=== PATIENT | female | born 1960 | race Caucasian/White ===

== ENCOUNTER 2017-11-29 17:18 | Inpatient (IN) ==
--- NOTE | 2017-11-29 18:14 | Emergency Department Note ---
Disposition Clinical Impression: S/P AVR (aortic valve replacement), Elevated INR, At high risk for falls, Compression fracture, Back pain, FRANCISCO (acute kidney injury), Dehydration Disposition: Admitted As Inpatient Condition: Fair Referrals: Josi Booth CNP [Primary Care Provider] - Forms: ED Satisfaction Letter Recheck wound or abnormal lab - General Chief Complaint: ED Recheck/Abnormal Lab/Rx Stated Complaint: INR 8 Time Seen by Provider: 11/29/17 18:13 Source: patient Limitations: no limitations Nursing Notes Reviewed: Yes Vital Signs Reviewed: Yes - History of Present Illness HPI Narrative: Patient presents to the ED for an elevated INR Patient is on Coumadin for a mechanical aortic valve replacement for 5 years ago. She was at the Coumadin clinic today, and reportedly, her level was 8. This was from a fingerstick and not from a full blood draw. She states she has not had any issues with her Coumadin other than when she was first put on it. She also reports she was seen here 4 days ago for back pain. States that she has a history of back pain and did not have any associated trauma and have been hurting for about a week but it did not go away as usual. Reports she was told to go get a massage which she did, but was unable to have a completed because they did an x-ray and found multiple lumbar and thoracic compression fractures. She was subsequently sent to orthopedic spine who placed her in a brace. She is currently awaiting MRI. She states her back pain is about the same, but she is done with her prednisone and it is starting to get worse. No numbness or weakness in her extremities, no loss of bowel or bladder function. She is not been on any recent antibiotics. No fever, chills, chest pain. The pain in her back does make her feel short of breath at times, but only when her back is hurting - Related Data Home Medications Medication Instructions Recorded Confirmed Carvedilol [Carvedilol] 3.125 mg PO BID 11/29/17 11/29/17 FLUoxetine HCl [PROzac] 20 mg PO DAILY 11/29/17 11/29/17 Levothyroxine [Synthroid] 88 mcg PO 0630 11/29/17 11/29/17 Pravastatin Sodium [Pravachol] 40 mg PO HS 11/29/17 11/29/17 Quetiapine Fumarate [Seroquel] 150 mg PO HS 11/29/17 11/29/17 clonazePAM [Klonopin] 1 mg PO BID PRN 11/29/17 11/29/17 lamoTRIgine [Lamictal Xr] 200 mg PO HS 11/29/17 11/29/17 predniSONE [PredniSONE] See Taper PO TAPER 11/29/17 11/29/17 Allergies Allergy/AdvReac Type Severity Reaction Status Date / Time No Known Allergies Allergy Verified 11/29/17 17:20 Review of Systems: As reviewed in the HPI. All other systems reviewed are negative or normal. Past Medical History - Past Medical History Attestation: Yes The following information was validated with the patient. Source: patient Medical history: Reports: CHF, hyperlipidemia, hypertension, seizures, thyroid disease Psychiatric history: Reports: bipolar, depression [employer] history: Reports: bilateral tubal ligation - Social History Smoking Status: Current every day smoker Smokeless Tobacco Status: No Alcohol use: Reports: none Drug use: Reports: none Physical Exam - General Limitations: no limitations General appearance: alert, in no apparent distress - Head Head exam: atraumatic, normocephalic, normal inspection - Eye Eye exam: Present: normal appearance, PERRL, EOMI - Chest Chest inspection: Present: normal inspection, symmetric chest wall rise - Respiratory Respiratory exam: Present: normal lung sounds bilaterally - Cardiovascular Cardiovascular exam: Present: regular rate, normal rhythm, systolic murmur (c/w mechanical aortic valve replacement ) - Abdominal Exam Abdominal exam: Present: soft - Back Exam Back exam: Present: other (did not palpate due to pain and know fracture. Point to lower T, upper L/S as tenderness. ) - Neurological Exam Neurological exam: Present: alert, oriented X3 - Psychiatric Psychiatric exam: Present: other (tearful, overwhelmed ) - Skin Skin exam: Present: warm, dry, intact, normal color Course Course Narrative: patient presents with elevated INR also with new lumbar/thoracic fxs and pain Will recheck labs to confirm. No signs/symptoms of bleeding. According to the 2012 ACCP guidelines, this patient would fall into the 5-9 without bleeding group and does not need Vit K and may just hold doses of Coumadin and have levels rechecked in 48 hours. - Reevaluation(s) Reevaluation #1: Lab called. Her INR is 8.47. Still awaiting renal function. Time: 19:10 Reevaluation #2: Patient's INR is actually 8.5. Patient has also been having fairly significant back pain while she has been here. She reports that she has been unable to get an MRI due to scheduling issues. She is very tearful and concerned. She does live at home and I am concerned that she is a fall risk. We do not want to rapidly reverse her Coumadin due to her having a mechanical aortic valve and would recommend holding it for 48 hours and rechecking. This combined with her relatively new compression fracture. We will admit the patient. The hospitalist service for interventional radiology consult an orthopedic spine consult for possible kyphoplasty. We will also recommend nonemergent inpatient MRI. Vital Signs Temperature 98.1 F 11/29/17 17:20 Pulse Rate 81 11/29/17 17:20 Respiratory Rate 16 11/29/17 17:20 Blood Pressure 145/97 11/29/17 17:20 O2 Sat by Pulse Oximetry 97 11/29/17 17:20 Temperature 98.1 F 11/29/17 17:20 Pulse Rate 81 11/29/17 17:20 Respiratory Rate 16 11/29/17 17:20 Blood Pressure 145/97 11/29/17 17:20 O2 Sat by Pulse Oximetry 97 11/29/17 17:20 Oxygen Delivery Oxygen Delivery Room Air Recheck wound or abnormal lab - Lab Data Result diagrams: 11/29/17 18:13 11/29/17 18:45 Lab Results 11/29/17 11/29/17 11/29/17 Range/Units 18:13 18:45 18:45 WBC 9.0 (4.3-11.1) K/mcL RBC 3.86 (3.82-4.97) M/mcL Hgb 13.5 (11.5-15.4) g/dL Hct 39.2 (35.3-44.9) % MCV 101.6 H (83.0-100.0) fL MCH 35.0 H (28.0-33.3) pg MCHC 34.4 (31.6-35.5) g/dL RDW 13.3 (11.5-14.5) % Plt Count 273 (140-400) K/mcL MPV 9.5 (9.4-12.4) fL Immature Gran % 0.8 (0-4) % Seg Neutrophils % 78.8 % Lymphocytes % 13.2 % Monocytes % 6.9 % Eosinophils % 0.1 % Basophils % 0.2 % Neutrophils # 7.1 (1.6-8.9) K/mcL Lymphocytes # 1.2 (0.6-4.6) K/mcL Monocytes # 0.6 (0.0-1.3) K/mcL Eosinophils # 0.0 (0.0-0.6) K/mcL Basophils # 0.0 (0.0-0.2) K/mcL PT 95.6 H* (9.4-12.1) Seconds INR 8.5 H* Sodium 141 (136-145) mEq/L Potassium 4.2 (3.5-5.1) mEq/L Chloride 109 H (98-107) mEq/L Carbon Dioxide 25 (23-29) mEq/L BUN 23 H (6-20) mg/dL Creatinine 1.22 H (0.60-1.20) mg/dL Est GFR ( Amer) 55 L (> 60) Est GFR (Non-Af Amer) 45 L (> 60) BUN/Creatinine Ratio 19 (6-26) Glucose 115 H (70-105) mg/dL Calculated Osmolality 297 (280-300) Calcium 9.3 (8.6-10.3) mg/dL S.B.A.R. - S.B.A.R. Situation: Demographics, MOA Background: Presenting Complaint, Relevant PMH, Meds, & Allergies Assessment: Vital Signs, Course and respsone to treatment, Exam Concerns, Patient/Family Expectation, Pertinant Lab Results, Outstanding Labs Recommendation: Recommendation based on pending studies, treatments, or consults S.B.A.R. Report Given to: Dr. Cao S.B.A.R. Repor Time: 20:00
[2017-11-29] MEDS ORDERED: *HR* OxyCODONE/APAP 10/325 TABLET PO ONE (18:22)
[2017-11-29 18:56] LABS: Basophils % 0.2 %; Eosinophils % 0.1 %; Hematocrit 39.2 % (35.3-44.9); Hemoglobin 13.5 g/dL (11.5-15.4); Immature Granulocytes % 0.8 % (0-4); Lymphocytes # 1.2 K/mcL (0.6-4.6); Lymphocytes % 13.2 %; Mean Corpuscular HGB Conc 34.4 g/dL (31.6-35.5); Mean Corpuscular Volume 101.6 fL (83.0-100.0); Mean Platelet Volume 9.5 fL (9.4-12.4); Monocytes # 0.6 K/mcL (0.0-1.3); Monocytes % 6.9 %; Neutrophils # 7.1 K/mcL (1.6-8.9); Platelet Count 273 K/mcL (140-400); Red Blood Count 3.86 M/mcL (3.82-4.97); Red Cell Distribution Width 13.3 % (11.5-14.5); Segmented Neutrophils % 78.8 %
[2017-11-29 19:10] LABS: Prothrombin Time 95.6 Seconds (9.4-12.1)
[2017-11-29 19:11] LABS: INR 8.5
[2017-11-29 19:23] LABS: Calcium 9.3 mg/dL (8.6-10.3); Potassium 4.2 mEq/L (3.5-5.1)
[2017-11-29] MEDS ORDERED: 0.9 % Sodium Chloride 1,000 ML IVC ONE (20:00)
[2017-11-29] MEDS ORDERED: *HR* Morphine 2 MG/ML SYRINGE IVP ONE (20:00)
[2017-11-29] MEDS ORDERED: Ondansetron 4 MG/2 ML VIAL IVP ONE (20:00)
--- NOTE | 2017-11-29 20:58 | Emergency Department Note ---
Disposition Clinical Impression: S/P AVR (aortic valve replacement), Elevated INR, At high risk for falls, Compression fracture, Back pain, FRANCISCO (acute kidney injury), Dehydration Disposition: Admitted As Inpatient Condition: Fair General Adult HPI - General Chief complaint: ED Recheck/Abnormal Lab/Rx Stated complaint: INR 8 Time Seen by Provider: 11/29/17 18:13 Source: patient Limitations: no limitations - History of Present Illness Pain Scale: 8 - Related Data Home Medications Medication Instructions Recorded Confirmed Carvedilol [Carvedilol] 3.125 mg PO BID 11/29/17 11/29/17 FLUoxetine HCl [PROzac] 20 mg PO DAILY 11/29/17 11/29/17 Levothyroxine [Synthroid] 88 mcg PO 0630 11/29/17 11/29/17 Pravastatin Sodium [Pravachol] 40 mg PO HS 11/29/17 11/29/17 Quetiapine Fumarate [Seroquel] 150 mg PO HS 11/29/17 11/29/17 Warfarin [Coumadin] 5 mg PO MOWETHFRSA 11/29/17 11/29/17 Warfarin [Coumadin] 7.5 mg PO SUTU 11/29/17 11/29/17 clonazePAM [Klonopin] 1 mg PO BID PRN 11/29/17 11/29/17 lamoTRIgine [Lamictal Xr] 200 mg PO HS 11/29/17 11/29/17 predniSONE [PredniSONE] See Taper PO TAPER 11/29/17 11/29/17 Allergies Allergy/AdvReac Type Severity Reaction Status Date / Time No Known Allergies Allergy Verified 11/29/17 17:20 Past Medical History - Past Medical History Medical history: Reports: CHF, hyperlipidemia, hypertension, seizures, thyroid disease Psychiatric history: Reports: bipolar, depression [employer] history: Reports: bilateral tubal ligation - Social History Smoking Status: Current every day smoker Smokeless Tobacco Status: No Alcohol use: Reports: none Drug use: Reports: none Physical Exam - General Limitations: no limitations General appearance: alert, in no apparent distress Course Vital Signs Temperature 98.1 F 11/29/17 17:20 Pulse Rate 81 11/29/17 17:20 Respiratory Rate 16 11/29/17 17:20 Blood Pressure 145/97 11/29/17 17:20 O2 Sat by Pulse Oximetry 97 11/29/17 17:20 Temperature 98.1 F 11/29/17 17:20 Pulse Rate 68 11/29/17 20:08 Respiratory Rate 20 11/29/17 20:08 Blood Pressure 148/110 11/29/17 20:08 O2 Sat by Pulse Oximetry 98 11/29/17 20:08 Oxygen Delivery Oxygen Delivery Room Air Medical Decision Making - Lab Data Result diagrams: 11/29/17 18:13 11/29/17 18:45 Lab Results 11/29/17 11/29/17 11/29/17 Range/Units 18:13 18:45 18:45 WBC 9.0 (4.3-11.1) K/mcL RBC 3.86 (3.82-4.97) M/mcL Hgb 13.5 (11.5-15.4) g/dL Hct 39.2 (35.3-44.9) % MCV 101.6 H (83.0-100.0) fL MCH 35.0 H (28.0-33.3) pg MCHC 34.4 (31.6-35.5) g/dL RDW 13.3 (11.5-14.5) % Plt Count 273 (140-400) K/mcL MPV 9.5 (9.4-12.4) fL Immature Gran % 0.8 (0-4) % Seg Neutrophils % 78.8 % Lymphocytes % 13.2 % Monocytes % 6.9 % Eosinophils % 0.1 % Basophils % 0.2 % Neutrophils # 7.1 (1.6-8.9) K/mcL Lymphocytes # 1.2 (0.6-4.6) K/mcL Monocytes # 0.6 (0.0-1.3) K/mcL Eosinophils # 0.0 (0.0-0.6) K/mcL Basophils # 0.0 (0.0-0.2) K/mcL PT 95.6 H* (9.4-12.1) Seconds INR 8.5 H* Sodium 141 (136-145) mEq/L Potassium 4.2 (3.5-5.1) mEq/L Chloride 109 H (98-107) mEq/L Carbon Dioxide 25 (23-29) mEq/L BUN 23 H (6-20) mg/dL Creatinine 1.22 H (0.60-1.20) mg/dL Est GFR ( Amer) 55 L (> 60) Est GFR (Non-Af Amer) 45 L (> 60) BUN/Creatinine Ratio 19 (6-26) Glucose 115 H (70-105) mg/dL Calculated Osmolality 297 (280-300) Calcium 9.3 (8.6-10.3) mg/dL Attestation Statement - Attestation Attestation: I examined this patient and my medical decision-making was reviewed with the Resident Physician, Dr. Spencer. I agree with the documented findings, disposition and treatment plan as described except to the extent set forth below. Patient is 57-year-old female sent here from the anticoagulation clinic for an elevated INR. Patient is currently on Coumadin and has been for the past 5 years for a mechanical aortic valve replacement. She was sent for an elevated INR of 8. Patient was evaluated in the ER a week ago for back pain discharged home without imaging or intervention in due to ongoing pain was seen by her doctor had outpatient imaging performed showing numerous compression fractures of thoracic and lumbar spine. Patient was referred to the spine surgeons who placed her in a brace and she is awaiting MRI at this time. Due to the ongoing pain despite patient being on steroids at this time she has been having increasing intractable back pain that has caused her to have decreased appetite and by mouth intake at home. Patient has not had any rectal bleeding no bleeding gums with brushing her teeth no easy bruising. I agree with patient's physical exam findings as documented. Vital signs are stable. Patient is uncomfortable but in no acute distress. Patient had lab evaluation showing some mild AK I likely due to decreased by mouth intake and was provided pain control here in the emergency department. Repeat INR shows mild elevation at 8.5. Feel the patient would benefit from hospitalization as she is a fall risk currently in her brace with decreased by mouth intake and now dehydration. Started IV fluids in the ED and patient would benefit from inpatient admission hydration, pain control, and MRI while in the hospital. Patient agrees with this plan and case was discussed with the hospitalist.
[2017-11-29] MEDS ORDERED: *HR* Phytonadione 10 MG/ML AMPUL SQ ONE (23:56)
[2017-11-30] MEDS ORDERED: *HR* HYDROcodone/Acet 5/325 mg TABLET PO PRN (00:46)
[2017-11-30] MEDS ORDERED: Naloxone 0.4 MG/ML INJ IVP PRN (00:46)
[2017-11-30] MEDS ORDERED: Acetaminophen 325 MG TABLET PO PRN (00:46)
[2017-11-30] MEDS: lamoTRIgine 100 MG TABLET PO SCH ×2 (01:21→20:20)
[2017-11-30] MEDS: *HR* OxyCODONE Immed Rel 5 MG TABLET PO PRN ×2 (01:21→07:58)
--- NOTE | 2017-11-30 01:41 | Internal Med History&Physical ---
<Esthela Worrell H - Last Filed: 11/30/17 01:20> Date of Encounter: 11/30/17 Time of Encounter: 01:20 Internal Medicine - H&P: HPI Chief complaint: back pain/ INR 8.5 Admitted From: Emergency Dept Plans for Post Hospital Care: Home History of present illness: Ms. Woods is a 57 year old female with past medical history of temporal lobe epilepsy, aortic and mitral valve mechanical replacement on chronic anticoagulation with Coumadin, and COPD who presented to [facility] on 11/29/2017 with complaints of back pain and lab work earlier in the day resulting in an INR of 8.5. Patient states she was helping somebody move approximately 2 weeks ago and reports low back pain ever since then. She came to the ED approximately a week ago and was told to get a massage. Massage therapist told her she needs to see her physician. Her physician ordered some lower back x-rays which indicated compression fractures in her thoracic and lumbar spine. She saw Dr. Fitzpatrick as an outpatient and he put her in a brace and ordered an MRI of which the patient has not had due to scheduling complex. Patient went to Coumadin clinic today and her INR was found to be 8.5. The decision was made to admit her to the hospital as patient is in a back brace with an extremely elevated INR and therefore at fall risk. Patient reports aortic valve and mitral valve replacement approximate 5 years ago. She has been on Coumadin since that time. She denies any other complaints other than the sharp back pain with no radiation. She denies any bowel or bladder incontinence. She denies any headaches, dizziness, headaches, or focal weakness or strength deficits. She denies any nausea, vomiting, diarrhea, hematemesis, melena, or hematochezia. Pain, palpitations, shortness of breath, nausea, or diaphoresis. Past Med Surg Social Fam HX - Past Medical History Attestation: Yes The following information was validated with the patient. Source: patient, old records reviewed Medical history: CHF, hyperlipidemia, hypertension, seizures, thyroid disease, valvular heart disease (S/P mitral and aortic valve replacement) Psychiatric history: bipolar, depression - Past Surgical History Surgical History: heart valve replacement - Social History Smoking Status: Current every day smoker Packs per day: <pk per day Smokeless Tobacco Status: No Alcohol use: none Drug use: none - Family History Father Living Status: Age at : 53 Cause of : mi Hx Family Cardiac Disorders: Yes Hx Family Respiratory Disorders: No Hx Family Cancer: No Hx Family GI Disorders: No Hx Family Genitourinary Disorders: No Hx Family Endocrine Disorder: No Hx Family Musculoskeletal Disorders: No Hx Family Neuromuscular Disorders: No Hx Family Neurologic Disorders: No Hx Family HEENT Disorders: No Hx Family Autoimmune Disorders: No Hx Family Reproductive Disorders: No Hx Family Psychosocial Disorders: No Hx Family Medical Disorders: No Mother Living Status: Age at : 83 Internal Medicine - H&P: Meds Carvedilol [Carvedilol] 3.125 mg PO BID 11/29/17 [History] FLUoxetine HCl [PROzac] 20 mg PO DAILY 11/29/17 [History] Levothyroxine [Synthroid] 88 mcg PO 0630 11/29/17 [History] Pravastatin Sodium [Pravachol] 40 mg PO HS 11/29/17 [History] Quetiapine Fumarate [Seroquel] 150 mg PO HS 11/29/17 [History] Warfarin [Coumadin] 5 mg PO MOWETHFRSA 11/29/17 [History] Warfarin [Coumadin] 7.5 mg PO SUTU 11/29/17 [History] clonazePAM [Klonopin] 1 mg PO BID PRN 11/29/17 [History] lamoTRIgine [Lamictal Xr] 200 mg PO HS 11/29/17 [History] predniSONE [PredniSONE] See Taper PO TAPER 11/29/17 [History] 3 Allergy/AdvReac Type Severity Reaction Status Date / Time No Known Allergies Allergy Verified 11/29/17 17:20 All Systems PM: A 10-system review of systems was performed and is negative for pertinent findings except as documented above in the HPI. - Constitutional Constitutional: no chills, no fever(s), no falls, no lethargy, no weakness - EENT Eyes: no decreased night vision, no other visual disturbances Nose, mouth and throat: no nasal congestion, no nasal discharge - Cardiovascular Cardiovascular ROS IM: no chest pain, no claudication, no diaphoresis, no dyspnea, no dyspnea on exertion, no edema, no irregular heart rhythm, no lightheadedness, no orthopnea, no palpitations, no paroxysmal nocturnal dyspnea - Respiratory Respiratory: no cough, no dyspnea - Gastrointestinal Gastrointestinal: no abdominal pain, no diarrhea, no hematemesis, no hematochezia, no loose stools, no melena, no nausea - Musculoskeletal Musculoskeletal ROS IM: back pain, no deformity, no numbness, no stiffness, no tingling - Integumentary Integumentary IM: no erythema, no rash, no jaundice - Neurological Neurological ROS: no abnormal gait, no burning sensations, no focal weakness, no numbness, no paresthesias, no radicular pain, no restless legs, no weakness, no other visual disturbances - Psychiatric Psychiatric: anxiety, depression - Endocrine Endocrine IM: no cold intolerance, no heat intolerance - Hematologic/Lymphatic Hematologic/Lymphatic: no easy bleeding, no easy bruising, no lymphadenopathy - Constitutional Vitals: Temp Pulse Resp BP Pulse Ox 97.7 F 64 16 160/96 98 11/29/17 22:06 11/29/17 22:06 11/29/17 22:06 11/29/17 22:06 11/29/17 22:06 General appearance: Present: cooperative, A&O X 3, pleasant, no acute distress, answers questions appropriately - Head Head exam: Present: atraumatic, normocephalic - Eye Eye exam: Present: conjuntiva pink, sclera anicteric - Neck Neck exam general surgery: Present: supple, trachea midline. Absent: lymphadenopathy - Respiratory Respiratory exam: Present: CTAB, rhonchi, wheezes. Absent: accessory muscle use , rales - Cardiovascular Cardiovascular exam: Present: RRR, +S1, +S2. Absent: diastolic murmur, gallop, rubs, systolic murmur - GI/Abdominal GI/Abdominal exam: Present: normal bowel sounds, soft, no peritoneal signs. Absent: distended, firm, guarding, tenderness - Extremities Exam Extremities exam: Present: warm, radial pulses palpable and symmetrical. Absent : calf tenderness, cyanotic, pedal edema - Back Exam Back exam: Present: vertebral tenderness (mild midline tenderness palpated in lumbar spine. No step offs.). Absent: CVA tenderness (L), CVA tenderness (R) - Neurological Exam Neurological exam: Present: CN II-XII intact, oriented X3, no focal deficits, strengths equal and symetr throughout. Absent: pronater drift, facial droop, speech deficit - Psychiatric Psychiatric exam: Present: normal affect, normal mood - Skin Skin exam: Present: dry, intact Internal Med - H&P Results - Labs CBC & Chem 7: 11/29/17 18:13 11/29/17 18:45 - Assessment and plan (1) Compression fracture Current Visit: Yes Status: Acute Assessment and plan: 57-year-old female status post mechanical valve replacement on chronic anticoagulation with Coumadin presents with two-week history of midline lumbar back pain. X-rays obtained as an outpatient indicate compression fractures in the thoracic and lumbar vertebrae. -We will obtain MRI thoracic and lumbar spine. -Consult to Dr. Mascorro with orthopedic spine. -Fall precautions as patient's INR is elevated to 8.5. (2) Elevated INR Current Visit: Yes Status: Acute Assessment and plan: Due to patient having 2 mechanical valves and no active signs of bleeding, we will abstain from FFP transfusion. -We will hold Coumadin for now. -Monitor daily. (3) FRANCISCO (acute kidney injury) Current Visit: Yes Status: Acute Assessment and plan: Patient received a bolus in the ED. -Recheck renal function in the morning. -Continue IV hydration. (4) At high risk for falls Current Visit: Yes Status: Acute Assessment and plan: Fall precautions while in back brace. (5) S/P AVR (aortic valve replacement) Current Visit: Yes Status: Acute Assessment and plan: Recommend an INR between 3 and 4. We will hold off on reversal of INR due to mechanical aortic and mitral valves. -coumadin held - Time Spent With Patient Total time spent is greater than 50% in coordination of care (as documented) at patient's floor/unit and/or counseling patient: <Lula Birchkimberlyjuan c - Last Filed: 11/30/17 06:31> Date of Encounter: 11/30/17 Internal Medicine - H&P: HPI History of present illness: Ms. Woods is a 57 year old female All Systems PM: A 10-system review of systems was performed and is negative for pertinent findings except as documented above in the HPI. - Constitutional Vitals: Temp Pulse Resp BP Pulse Ox 97.6 F 66 16 136/88 92 11/30/17 03:48 11/30/17 03:48 11/30/17 03:48 11/30/17 03:48 11/30/17 03:48 Internal Med - H&P Results - Labs CBC & Chem 7: 11/30/17 05:37 11/30/17 05:37 Labs: Short CBC 11/30/17 Range/Units 05:37 WBC 8.1 (4.3-11.1) K/mcL Hgb 13.6 (11.5-15.4) g/dL Hct 41.3 (35.3-44.9) % Plt Count 246 (140-400) K/mcL Neutrophils # 5.5 (1.6-8.9) K/mcL BMP 11/30/17 05:37 Sodium 142 Potassium 4.1 Chloride 110 H Carbon Dioxide 28 BUN 15 Creatinine 0.78 Glucose 82 Calcium 9.2 Liver Function 11/30/17 Range/Units 05:37 Total Bilirubin 0.4 (0.3-1.0) mg/dL AST 18 (13-39) Units/L ALT 13 (7-52) Units/L Alkaline Phosphatase 89 (34-104) Units/L Albumin 3.8 (3.5-5.7) g/dL - Attending Attestation I examined this patient and my medical decision-making was reviewed with the Resident Physician. I agree with the documented findings, disposition and treatment plan as described except to the extent set forth below. - Time Spent With Patient Total time spent is greater than 50% in coordination of care (as documented) at patient's floor/unit and/or counseling patient:
[2017-11-30 06:04] LABS: Basophils # 0.1 K/mcL (0.0-0.2); Basophils % 0.6 %; Eosinophils # 0.1 K/mcL (0.0-0.6); Eosinophils % 1.7 %; Hematocrit 41.3 % (35.3-44.9); Hemoglobin 13.6 g/dL (11.5-15.4); Lymphocytes # 1.9 K/mcL (0.6-4.6); Lymphocytes % 22.9 %; Mean Corpuscular HGB Conc 32.9 g/dL (31.6-35.5); Mean Corpuscular Hemoglobin 34.3 pg (28.0-33.3); Mean Platelet Volume 9.4 fL (9.4-12.4); Monocytes # 0.6 K/mcL (0.0-1.3); Monocytes % 6.8 %; Neutrophils # 5.5 K/mcL (1.6-8.9); Platelet Count 246 K/mcL (140-400); Red Blood Count 3.97 M/mcL (3.82-4.97); Red Cell Distribution Width 13.4 % (11.5-14.5)
[2017-11-30 06:20] LABS: Alanine Aminotransferase 13 Units/L (7-52); Albumin 3.8 g/dL (3.5-5.7); Albumin/Globulin Ratio 1.5 (1.1-2.2); Alkaline Phosphatase 89 Units/L (34-104); Aspartate Amino Transferase 18 Units/L (13-39); BUN/Creatinine Ratio 19 (6-26); Bilirubin,Total 0.4 mg/dL (0.3-1.0); Blood Urea Nitrogen 15 mg/dL (6-20); Calcium 9.2 mg/dL (8.6-10.3); Carbon Dioxide 28 mEq/L (23-29); Chloride 110 mEq/L (98-107); Globulin 2.5 g/dL (2.4-3.5); Glucose 82 mg/dL (70-105); Magnesium 2.2 mg/dL (1.6-2.6); Osmolality,Calculated 294 (280-300); Phosphorous 2.9 mg/dL (2.7-4.5); Potassium 4.1 mEq/L (3.5-5.1); Sodium 142 mEq/L (136-145); Total Protein 6.3 g/dL (6.4-8.9); eGFR For African Americans > 60 (> 60); eGFR For Non-African Americans > 60 (> 60)
[2017-11-30 06:33] LABS: Activated Partial Thrombo Time 49.5 Seconds (26.0-36.0)
[2017-11-30 06:44] LABS: Prothrombin Time 75.8 Seconds (9.4-12.1)
[2017-11-30 06:45] LABS: INR 6.8
[2017-11-30] MEDS: FLUoxetine 20 MG CAPSULE PO SCH (07:58)
[2017-11-30] MEDS ORDERED: Ondansetron 4 MG/2 ML VIAL IVP PRN (09:33)
[2017-11-30] MEDS ORDERED: Ondansetron 4 MG/2 ML VIAL ONE (09:36)
[2017-11-30] MEDS ORDERED: *HR* Promethazine 25 MG/ML VIAL IVP PRN (14:40)
[2017-11-30] MEDS ORDERED: *HR* FentaNYL PATCH 50 MCG PATCH TD SCH (14:45)
--- NOTE | 2017-11-30 14:47 | Internal Med Progress Note ---
Date of Encounter: 11/30/17 Time of Encounter: 10:00 - Assessment and plan (1) S/P AVR (aortic valve replacement) Current Visit: Yes Status: Acute Assessment and plan: Pt with aortic and mitral valve replaced. Pt was taking Warfarin. INR 8.5 on arrival. Warfarin held, today INR is 6.8. Continue to hold Warfarin and monitor INR and for signs of bleeding. (2) Elevated INR Current Visit: Yes Status: Acute Assessment and plan: Plan as above. (3) At high risk for falls Current Visit: Yes Status: Acute Assessment and plan: Secondary to back pain/weakness. Fall precautions while in back brace. (4) Compression fracture Current Visit: Yes Status: Acute Assessment and plan: Chronic T6 and L1 compression fractures. MRI today shows bulging dises in lumbar area, T12 abnormal signal, possible acute fracture or underlying lesion could not be excluded, possible bilateral sacral insufficiency fractures, and multilevel degenerative changes of the T and L spine, no significant spinal canal stenosis. Pain medication changed to Fentanyl patch 50mcg TID Maintain brace Will examine other methods of pain control if she is still not getting relief. Pt will be seen by Dr. Mascorro Lumbar Spine MRI 11/30/17 00:52 IMPRESSION: Abnormal STIR signal involving the T12 vertebral body, which extends into the bilateral posterior elements, right greater than left. There is a fluid signal within the superior endplate of T12 vertebral body. Findings may represent acute fracture if there is recent history of trauma. Underlying lesion cannot be excluded on noncontrast examination. Consider follow-up examination, if there is a concern for pathologic fracture. Consider further evaluation with a CT to better define the fracture line. Chronic T6 and L1 compression fractures, as detailed above. Abnormal STIR signal involving the superior endplate of C7 vertebral body may represent degenerative changes, or minimal superior endplate fracture. Correlate with any symptoms in cervical spine lesion. This is partially imaged on thoracic spine MRI. Abnormal T2 signal within the bilateral sacrum. Possibility of bilateral sacral insufficiency fractures should be considered given degree of osteopenia on the radiographic examination. Multilevel degenerative changes of the thoracic and lumbar spine, as detailed above. No significant spinal canal stenosis. D/ / 11/30/2017 12:35:01 Tyson Cesar MD / yana Interpreting Provider: Tyson Cesar MD Thoracic Spine MRI 11/30/17 00:52 IMPRESSION: Abnormal STIR signal involving the T12 vertebral body, which extends into the bilateral posterior elements, right greater than left. There is a fluid signal within the superior endplate of T12 vertebral body. Findings may represent acute fracture if there is recent history of trauma. Underlying lesion cannot be excluded on noncontrast examination. Consider follow-up examination, if there is a concern for pathologic fracture. Consider further evaluation with a CT to better define the fracture line. Chronic T6 and L1 compression fractures, as detailed above. Abnormal STIR signal involving the superior endplate of C7 vertebral body may represent degenerative changes, or minimal superior endplate fracture. Correlate with any symptoms in cervical spine lesion. This is partially imaged on thoracic spine MRI. Abnormal T2 signal within the bilateral sacrum. Possibility of bilateral sacral insufficiency fractures should be considered given degree of osteopenia on the radiographic examination. Multilevel degenerative changes of the thoracic and lumbar spine, as detailed above. No significant spinal canal stenosis. D/ / 11/30/2017 12:35:01 Tyson Cesar MD / yana Interpreting Provider: Tyson Cesar MD (5) FRANCISCO (acute kidney injury) Current Visit: Yes Status: Resolved Assessment and plan: Relieved with IVF bolus in the ED. Continue to avoid nephrotoxins and monitor labs. - Time Spent With Patient Total time spent is greater than 50% in coordination of care (as documented) at patient's floor/unit and/or counseling patient: less than 15 minutes - Subjective Interval history: Pt was seen and assessed at bedside at 1000. She was having nausea and intractable back pain. She was getting little relief from pain medications. Due to pain and nausea, she was difficult to assess. Pt is aware that pain medication and antiemetic will be changed. - Constitutional Vitals: Temp Pulse Resp BP Pulse Ox 97.5 F L 78 18 132/79 93 11/30/17 10:45 11/30/17 10:45 11/30/17 10:45 11/30/17 10:45 11/30/17 10:45 General appearance: Present: cooperative, A&O X 3, pleasant, no acute distress, answers questions appropriately - Head Head exam: Present: atraumatic, normal inspection, normocephalic - Eye Eye exam: Present: normal appearance, conjuntiva pink, sclera anicteric - Neck Neck exam general surgery: Present: normal inspection, supple, trachea midline. Absent: lymphadenopathy, tenderness - Respiratory Respiratory exam: Present: CTAB. Absent: accessory muscle use, decreased breath sounds, rales, respiratory distress, rhonchi, wheezes - Cardiovascular Cardiovascular exam: Present: RRR, +S1, +S2. Absent: diastolic murmur, gallop, rubs, systolic murmur - GI/Abdominal GI/Abdominal exam: Present: normal bowel sounds, soft. Absent: distended, hepatomegaly, tenderness - Extremities Exam Extremities exam: Present: normal capillary refill, normal inspection, warm, radial pulses palpable and symmetrical. Absent: calf tenderness, cyanotic, pedal edema, tenderness - Neurological Exam Neurological exam: Present: alert, oriented X3, no focal deficits. Absent: facial droop, speech deficit - Skin Skin exam: Present: dry, intact, normal color, warm. Absent: rash Internal Medicine: Result - Labs CBC & Chem 7: 11/30/17 05:37 11/30/17 05:37 Labs: Short CBC 11/30/17 Range/Units 05:37 WBC 8.1 (4.3-11.1) K/mcL Hgb 13.6 (11.5-15.4) g/dL Hct 41.3 (35.3-44.9) % Plt Count 246 (140-400) K/mcL Neutrophils # 5.5 (1.6-8.9) K/mcL BMP 11/30/17 05:37 Sodium 142 Potassium 4.1 Chloride 110 H Carbon Dioxide 28 BUN 15 Creatinine 0.78 Glucose 82 Calcium 9.2 Liver Function 11/30/17 Range/Units 05:37 Total Bilirubin 0.4 (0.3-1.0) mg/dL AST 18 (13-39) Units/L ALT 13 (7-52) Units/L Alkaline Phosphatase 89 (34-104) Units/L Albumin 3.8 (3.5-5.7) g/dL - ABG Interpretation ABG results: PT/INR, D-dimer PT 75.8 Seconds (9.4-12.1) H* 11/30/17 05:37 - Impressions Impressions Lumbar Spine MRI 11/30/17 00:52 IMPRESSION: Abnormal STIR signal involving the T12 vertebral body, which extends into the bilateral posterior elements, right greater than left. There is a fluid signal within the superior endplate of T12 vertebral body. Findings may represent acute fracture if there is recent history of trauma. Underlying lesion cannot be excluded on noncontrast examination. Consider follow-up examination, if there is a concern for pathologic fracture. Consider further evaluation with a CT to better define the fracture line. Chronic T6 and L1 compression fractures, as detailed above. Abnormal STIR signal involving the superior endplate of C7 vertebral body may represent degenerative changes, or minimal superior endplate fracture. Correlate with any symptoms in cervical spine lesion. This is partially imaged on thoracic spine MRI. Abnormal T2 signal within the bilateral sacrum. Possibility of bilateral sacral insufficiency fractures should be considered given degree of osteopenia on the radiographic examination. Multilevel degenerative changes of the thoracic and lumbar spine, as detailed above. No significant spinal canal stenosis. D/ : / 11/30/2017 12:35:01 Tyson Cesar MD / yana Interpreting Provider: Tyson Cesar MD Thoracic Spine MRI 11/30/17 00:52 IMPRESSION: Abnormal STIR signal involving the T12 vertebral body, which extends into the bilateral posterior elements, right greater than left. There is a fluid signal within the superior endplate of T12 vertebral body. Findings may represent acute fracture if there is recent history of trauma. Underlying lesion cannot be excluded on noncontrast examination. Consider follow-up examination, if there is a concern for pathologic fracture. Consider further evaluation with a CT to better define the fracture line. Chronic T6 and L1 compression fractures, as detailed above. Abnormal STIR signal involving the superior endplate of C7 vertebral body may represent degenerative changes, or minimal superior endplate fracture. Correlate with any symptoms in cervical spine lesion. This is partially imaged on thoracic spine MRI. Abnormal T2 signal within the bilateral sacrum. Possibility of bilateral sacral insufficiency fractures should be considered given degree of osteopenia on the radiographic examination. Multilevel degenerative changes of the thoracic and lumbar spine, as detailed above. No significant spinal canal stenosis. D/ : / 11/30/2017 12:35:01 Tyson Cesar MD / yana Interpreting Provider: Tyson Cesar MD Consult Discharge Plan - Plan Referrals: Josi Booth CNP [Primary Care Provider] -
[2017-11-30] MEDS ORDERED: *HR* FentaNYL PATCH 25 MCG PATCH TD SCH (15:30)
[2017-11-30] MEDS: clonazePAM 1 MG TABLET PO PRN (20:25)
[2017-12-01 05:52] LABS: Basophils # 0.1 K/mcL (0.0-0.2); Basophils % 0.8 %; Eosinophils # 0.3 K/mcL (0.0-0.6); Eosinophils % 2.9 %; Hemoglobin 13.5 g/dL (11.5-15.4); Immature Granulocytes % 1.4 % (0-4); Lymphocytes # 2.3 K/mcL (0.6-4.6); Lymphocytes % 26.1 %; Mean Corpuscular HGB Conc 32.9 g/dL (31.6-35.5); Mean Corpuscular Hemoglobin 33.8 pg (28.0-33.3); Mean Corpuscular Volume 102.8 fL (83.0-100.0); Mean Platelet Volume 9.7 fL (9.4-12.4); Monocytes # 0.6 K/mcL (0.0-1.3); Monocytes % 7.2 %; Neutrophils # 5.4 K/mcL (1.6-8.9); Platelet Count 235 K/mcL (140-400); Red Blood Count 3.99 M/mcL (3.82-4.97); Red Cell Distribution Width 13.2 % (11.5-14.5); Segmented Neutrophils % 61.6 %
[2017-12-01 06:08] LABS: BUN/Creatinine Ratio 21 (6-26); Blood Urea Nitrogen 17 mg/dL (6-20); Calcium 9.3 mg/dL (8.6-10.3); Carbon Dioxide 31 mEq/L (23-29); Chloride 106 mEq/L (98-107); Glucose 78 mg/dL (70-105); Osmolality,Calculated 290 (280-300); Potassium 4.4 mEq/L (3.5-5.1); Sodium 140 mEq/L (136-145); eGFR For African Americans > 60 (> 60); eGFR For Non-African Americans > 60 (> 60)
[2017-12-01] MEDS: FLUoxetine 20 MG CAPSULE PO SCH (08:00)
[2017-12-01 09:46] LABS: INR 1.3; Prothrombin Time 13.9 Seconds (9.4-12.1)
--- NOTE | 2017-12-01 15:01 | Internal Med Progress Note ---
Date of Encounter: 12/01/17 Time of Encounter: 09:45 - Assessment and plan (1) S/P AVR (aortic valve replacement) Current Visit: Yes Status: Acute Assessment and plan: Pt with aortic and mitral valve replaced. INR 1.3. Restarted with pharmacy to dose. Continue to monitor INR. (2) Elevated INR Current Visit: Yes Status: Acute Assessment and plan: Resolved. Warfarin restarted, pharmacy to dose. Monitor INR. (3) At high risk for falls Current Visit: Yes Status: Acute Assessment and plan: Monitor for safety. Pt reports several falls over the last 6 months. (4) Compression fracture Current Visit: Yes Status: Acute Assessment and plan: Chronic T6 and L1 compression fractures. MRI shows bulging dises in lumbar area, T12 abnormal signal, possible acute fracture or underlying lesion could not be excluded, possible bilateral sacral insufficiency fractures, and multilevel degenerative changes of the T and L spine, no significant spinal canal stenosis. Pain medication changed to Fentanyl patch 50mcg TID, pain well controlled now. Maintain brace Pt will be seen by Dr. Mascorro Lumbar Spine MRI 11/30/17 00:52 IMPRESSION: Abnormal STIR signal involving the T12 vertebral body, which extends into the bilateral posterior elements, right greater than left. There is a fluid signal within the superior endplate of T12 vertebral body. Findings may represent acute fracture if there is recent history of trauma. Underlying lesion cannot be excluded on noncontrast examination. Consider follow-up examination, if there is a concern for pathologic fracture. Consider further evaluation with a CT to better define the fracture line. Chronic T6 and L1 compression fractures, as detailed above. Abnormal STIR signal involving the superior endplate of C7 vertebral body may represent degenerative changes, or minimal superior endplate fracture. Correlate with any symptoms in cervical spine lesion. This is partially imaged on thoracic spine MRI. Abnormal T2 signal within the bilateral sacrum. Possibility of bilateral sacral insufficiency fractures should be considered given degree of osteopenia on the radiographic examination. Multilevel degenerative changes of the thoracic and lumbar spine, as detailed above. No significant spinal canal stenosis. D/ / 11/30/2017 12:35:01 Tyson Cesar MD / yana Interpreting Provider: Tyson Cesar MD Thoracic Spine MRI 11/30/17 00:52 IMPRESSION: Abnormal STIR signal involving the T12 vertebral body, which extends into the bilateral posterior elements, right greater than left. There is a fluid signal within the superior endplate of T12 vertebral body. Findings may represent acute fracture if there is recent history of trauma. Underlying lesion cannot be excluded on noncontrast examination. Consider follow-up examination, if there is a concern for pathologic fracture. Consider further evaluation with a CT to better define the fracture line. Chronic T6 and L1 compression fractures, as detailed above. Abnormal STIR signal involving the superior endplate of C7 vertebral body may represent degenerative changes, or minimal superior endplate fracture. Correlate with any symptoms in cervical spine lesion. This is partially imaged on thoracic spine MRI. Abnormal T2 signal within the bilateral sacrum. Possibility of bilateral sacral insufficiency fractures should be considered given degree of osteopenia on the radiographic examination. Multilevel degenerative changes of the thoracic and lumbar spine, as detailed above. No significant spinal canal stenosis. D/ / 11/30/2017 12:35:01 Tyson Cesar MD / yana Interpreting Provider: Tyson Cesar MD (5) FRANCISCO (acute kidney injury) Current Visit: Yes Status: Resolved Assessment and plan: Resolved. Relieved with IVF bolus in the ED. Continue to avoid nephrotoxins and monitor labs. (6) DVT prophylaxis Current Visit: Yes Status: Acute Assessment and plan: Pt restarting Warfarin, pharmacy to dose. Calf pumps also ordered. Pt on bedrest. - Time Spent With Patient Total time spent is greater than 50% in coordination of care (as documented) at patient's floor/unit and/or counseling patient: less than 15 minutes - Subjective Interval history: Pt was seen and assessed at bedside at 0945. Pt reports that pain is under control and that she feels better. She states that she would like to go home and see Dr Mascorro in the office, we discussed that her appointment may be a few days away and that she is probably better off here and that we can control her pain better. She was in agreement. She denies n/v abdominal pain, headache, blurred vision, chest pain, or shortness of breath. - Constitutional Vitals: Temp Pulse Resp BP Pulse Ox 98.2 F 66 16 106/71 95 12/01/17 11:57 12/01/17 11:57 12/01/17 11:57 12/01/17 11:57 12/01/17 11:57 General appearance: Present: cooperative, A&O X 3, pleasant, no acute distress, answers questions appropriately - Head Head exam: Present: atraumatic, normal inspection, normocephalic - Eye Eye exam: Present: normal appearance, conjuntiva pink, sclera anicteric - Neck Neck exam general surgery: Present: supple, trachea midline. Absent: lymphadenopathy - Respiratory Respiratory exam: Present: CTAB. Absent: accessory muscle use, rales, respiratory distress, rhonchi, wheezes - Cardiovascular Cardiovascular exam: Present: RRR, +S1, +S2. Absent: diastolic murmur, gallop, rubs, systolic murmur - GI/Abdominal GI/Abdominal exam: Present: normal bowel sounds, soft. Absent: distended, tenderness - Extremities Exam Extremities exam: Present: normal capillary refill, normal inspection, warm, radial pulses palpable and symmetrical. Absent: calf tenderness, cyanotic, pedal edema, tenderness - Neurological Exam Neurological exam: Present: alert, oriented X3, no focal deficits. Absent: facial droop, speech deficit - Skin Skin exam: Present: dry, intact, normal color, warm. Absent: rash Internal Medicine: Result - Labs CBC & Chem 7: 12/01/17 04:56 12/01/17 04:56 Labs: Short CBC 12/01/17 Range/Units 04:56 WBC 8.7 (4.3-11.1) K/mcL Hgb 13.5 (11.5-15.4) g/dL Hct 41.0 (35.3-44.9) % Plt Count 235 (140-400) K/mcL Neutrophils # 5.4 (1.6-8.9) K/mcL BMP 12/01/17 04:56 Sodium 140 Potassium 4.4 Chloride 106 Carbon Dioxide 31 H BUN 17 Creatinine 0.81 Glucose 78 Calcium 9.3 - ABG Interpretation ABG results: PT/INR, D-dimer PT 13.9 Seconds (9.4-12.1) H D 12/01/17 08:24 - Impressions Impressions Lumbar Spine MRI 11/30/17 00:52 IMPRESSION: 1. Abnormal STIR signal involving T12 vertebral body, which extends into bilateral posterior elements, right greater than left. There is fluid signal within superior endplate of T12 vertebral body. Findings may represent acute fracture if there is recent history of trauma. Underlying lesion cannot be excluded on noncontrast examination. Consider follow-up examination, if there is a concern for pathologic fracture. Consider further evaluation with CT to better define the fracture line. 2. Abnormal T2 signal within the bilateral sacrum. Possibility of bilateral sacral insufficiency fractures should be considered given degree of osteopenia on the radiographic examination. 3. Abnormal STIR signal involving superior endplate of C7 vertebral body may represent degenerative changes, or minimal superior endplate fracture. Correlate with any symptoms in cervical spine lesion. This is partially imaged on thoracic spine MRI. 4. Chronic T6 and L1 compression fractures, as detailed above. 5. Multilevel degenerative changes of the thoracic and lumbar spine, as detailed above. No significant spinal canal stenosis. D/ : / 11/30/2017 12:35:01 Tyson Cesar MD / yana Interpreting Provider: Tyson Cesar MD Thoracic Spine MRI 11/30/17 00:52 IMPRESSION: 1. Abnormal STIR signal involving T12 vertebral body, which extends into bilateral posterior elements, right greater than left. There is fluid signal within superior endplate of T12 vertebral body. Findings may represent acute fracture if there is recent history of trauma. Underlying lesion cannot be excluded on noncontrast examination. Consider follow-up examination, if there is a concern for pathologic fracture. Consider further evaluation with CT to better define the fracture line. 2. Abnormal T2 signal within the bilateral sacrum. Possibility of bilateral sacral insufficiency fractures should be considered given degree of osteopenia on the radiographic examination. 3. Abnormal STIR signal involving superior endplate of C7 vertebral body may represent degenerative changes, or minimal superior endplate fracture. Correlate with any symptoms in cervical spine lesion. This is partially imaged on thoracic spine MRI. 4. Chronic T6 and L1 compression fractures, as detailed above. 5. Multilevel degenerative changes of the thoracic and lumbar spine, as detailed above. No significant spinal canal stenosis. D/ / 11/30/2017 12:35:01 Tyson Cesar MD / yana Interpreting Provider: Tyson Cesar MD Consult Discharge Plan - Plan Referrals: Josi Booth, ISABEL [Primary Care Provider] -
[2017-12-01] MEDS: clonazePAM 1 MG TABLET PO PRN (16:36)
[2017-12-01] MEDS ORDERED: *HR* Warfarin 5 MG TABLET PO ONE (18:00)
[2017-12-01] MEDS ORDERED: Warfarin perPT PO PRN (18:00)
[2017-12-01] MEDS: lamoTRIgine 100 MG TABLET PO SCH (21:43)
[2017-12-02 05:17] LABS: Eosinophils % 3.9 %; Hematocrit 40.5 % (35.3-44.9); Hemoglobin 13.5 g/dL (11.5-15.4); Immature Granulocytes % 1.4 % (0-4); Mean Corpuscular HGB Conc 33.3 g/dL (31.6-35.5); Mean Corpuscular Hemoglobin 34.1 pg (28.0-33.3); Mean Corpuscular Volume 102.3 fL (83.0-100.0); Mean Platelet Volume 9.5 fL (9.4-12.4); Monocytes % 6.5 %; Platelet Count 214 K/mcL (140-400); Red Blood Count 3.96 M/mcL (3.82-4.97); Red Cell Distribution Width 13.2 % (11.5-14.5); Segmented Neutrophils % 65.4 %
[2017-12-02 05:18] LABS: Basophils # 0.1 K/mcL (0.0-0.2); Basophils % 0.8 %; Eosinophils # 0.4 K/mcL (0.0-0.6); Lymphocytes # 2.1 K/mcL (0.6-4.6); Monocytes # 0.6 K/mcL (0.0-1.3); Neutrophils # 6.1 K/mcL (1.6-8.9)
[2017-12-02 05:25] LABS: INR 1.1; Prothrombin Time 12.1 Seconds (9.4-12.1)
[2017-12-02 05:36] LABS: BUN/Creatinine Ratio 26 (6-26); Blood Urea Nitrogen 22 mg/dL (6-20); Calcium 9.3 mg/dL (8.6-10.3); Carbon Dioxide 32 mEq/L (23-29); Chloride 104 mEq/L (98-107); Glucose 91 mg/dL (70-105); Osmolality,Calculated 293 (280-300); Potassium 4.1 mEq/L (3.5-5.1); Sodium 140 mEq/L (136-145); eGFR For African Americans > 60 (> 60); eGFR For Non-African Americans > 60 (> 60)
[2017-12-02] MEDS: FLUoxetine 20 MG CAPSULE PO SCH (07:56)
[2017-12-02] MEDS ORDERED: *HR* FentaNYL PATCH 25 MCG PATCH TD SCH (12:30)
[2017-12-02] MEDS: clonazePAM 1 MG TABLET PO PRN (12:51)
--- NOTE | 2017-12-02 12:58 | Event Note ---
Date of Encounter: 12/02/17 Time of Encounter: 12:55 Patient requests to see a physician. Patient is crying, c/o not seen a physician for few days, she complained of back pain; 7 out of 10, worsening with movement. She stated that morphine and Percocet make her sick, fentanyl patch is working well, but is not working right now and want to change a new patch. I spoke to the nurse to take off the old patch and place a new fentanyl. All her questions are answered. She agrees to wait for Dr. Mascorro come to see her tomorrow.
[2017-12-02] MEDS ORDERED: *HR* OxyCODONE/APAP 5/325 TABLET PO PRN (13:30)
--- NOTE | 2017-12-02 14:36 | Internal Med Progress Note ---
Date of Encounter: 12/02/17 Time of Encounter: 10:05 - Assessment and plan (1) S/P AVR (aortic valve replacement) Current Visit: Yes Status: Chronic Assessment and plan: Pt with aortic and mitral valve replaced. INR 1.1. Warfarin dosed by pharmacy. Continue to monitor INR. (2) Elevated INR Current Visit: Yes Status: Resolved Assessment and plan: Resolved. Warfarin restarted. Monitoring INR> (3) At high risk for falls Current Visit: Yes Status: Chronic Assessment and plan: Monitor for safety and falls. Pt reports several falls over the last 6 months. (4) Compression fracture Current Visit: Yes Status: Acute Assessment and plan: Chronic T6 and L1 compression fractures. Pain control adequate. Fentanyl patch 50mcg TID, pain well controlled now. Percocet 5/325mg po q6h prn severe breakthrough pain Maintain brace Pt will be seen by Dr. Mascorro Lumbar Spine MRI 11/30/17 00:52 IMPRESSION: Abnormal STIR signal involving the T12 vertebral body, which extends into the bilateral posterior elements, right greater than left. There is a fluid signal within the superior endplate of T12 vertebral body. Findings may represent acute fracture if there is recent history of trauma. Underlying lesion cannot be excluded on noncontrast examination. Consider follow-up examination, if there is a concern for pathologic fracture. Consider further evaluation with a CT to better define the fracture line. Chronic T6 and L1 compression fractures, as detailed above. Abnormal STIR signal involving the superior endplate of C7 vertebral body may represent degenerative changes, or minimal superior endplate fracture. Correlate with any symptoms in cervical spine lesion. This is partially imaged on thoracic spine MRI. Abnormal T2 signal within the bilateral sacrum. Possibility of bilateral sacral insufficiency fractures should be considered given degree of osteopenia on the radiographic examination. Multilevel degenerative changes of the thoracic and lumbar spine, as detailed above. No significant spinal canal stenosis. D/ / 11/30/2017 12:35:01 Tyson Cesar MD / yana Interpreting Provider: Tyson Cesar MD Thoracic Spine MRI 11/30/17 00:52 IMPRESSION: Abnormal STIR signal involving the T12 vertebral body, which extends into the bilateral posterior elements, right greater than left. There is a fluid signal within the superior endplate of T12 vertebral body. Findings may represent acute fracture if there is recent history of trauma. Underlying lesion cannot be excluded on noncontrast examination. Consider follow-up examination, if there is a concern for pathologic fracture. Consider further evaluation with a CT to better define the fracture line. Chronic T6 and L1 compression fractures, as detailed above. Abnormal STIR signal involving the superior endplate of C7 vertebral body may represent degenerative changes, or minimal superior endplate fracture. Correlate with any symptoms in cervical spine lesion. This is partially imaged on thoracic spine MRI. Abnormal T2 signal within the bilateral sacrum. Possibility of bilateral sacral insufficiency fractures should be considered given degree of osteopenia on the radiographic examination. Multilevel degenerative changes of the thoracic and lumbar spine, as detailed above. No significant spinal canal stenosis. D/ / 11/30/2017 12:35:01 Tyson Cesar MD / yana Interpreting Provider: Tyson Cesar MD (5) DVT prophylaxis Current Visit: Yes Status: Acute Assessment and plan: Warfarin, pharmacy to dose. Calf pumps also ordered. Pt on bedrest. (6) FRANCISCO (acute kidney injury) Current Visit: Yes Status: Resolved Assessment and plan: Resolved. Continue to avoid nephrotoxins and monitor labs. - Time Spent With Patient Total time spent is greater than 50% in coordination of care (as documented) at patient's floor/unit and/or counseling patient: less than 15 minutes - Subjective Interval history: Pt was seen and assessed at bedside at 1005. Pt reports that pain is under control and that she feels better but is getting restless. She was pleasant and calm. She denies n/v abdominal pain, headache, blurred vision, chest pain, or shortness of breath. Pt was made aware this a.m that Dr. Mascorro was not taking calls for new pts and that he would see her tomorrow. I was called to the room in the afternoon, pt is very upset, tearful, states that she has not seen a Dr since she got here. She is upset that people were talking in the hallway and wants them to be fired. I asked admitting physician to see pt, which she did. When I went back to see pt to see if she is ok, she was sleeping. - Constitutional Vitals: Temp Pulse Resp BP Pulse Ox 98.1 F 65 18 132/79 96 12/02/17 10:48 04/29/18 10:48 12/02/17 10:48 12/02/17 10:48 12/02/17 10:48 General appearance: Present: cooperative, A&O X 3, pleasant, no acute distress, answers questions appropriately - Head Head exam: Present: atraumatic, normal inspection, normocephalic - Eye Eye exam: Present: normal appearance, conjuntiva pink, sclera anicteric - Neck Neck exam general surgery: Present: supple, trachea midline. Absent: lymphadenopathy - Respiratory Respiratory exam: Present: CTAB. Absent: accessory muscle use, chest wall tenderness, rales, respiratory distress, rhonchi, wheezes - Cardiovascular Cardiovascular exam: Present: RRR, +S1, +S2. Absent: diastolic murmur, gallop, rubs, systolic murmur - GI/Abdominal GI/Abdominal exam: Present: normal bowel sounds, soft. Absent: distended, hepatomegaly, tenderness - Extremities Exam Extremities exam: Present: normal capillary refill, normal inspection, warm, radial pulses palpable and symmetrical. Absent: calf tenderness, cyanotic, pedal edema, tenderness - Neurological Exam Neurological exam: Present: alert, oriented X3, no focal deficits. Absent: altered, facial droop, speech deficit - Skin Skin exam: Present: dry, intact, normal color, warm. Absent: rash Internal Medicine: Result - Labs CBC & Chem 7: 12/02/17 05:05 12/02/17 05:05 Labs: Short CBC 12/02/17 Range/Units 05:05 WBC 9.3 (4.3-11.1) K/mcL Hgb 13.5 (11.5-15.4) g/dL Hct 40.5 (35.3-44.9) % Plt Count 214 (140-400) K/mcL Neutrophils # 6.1 (1.6-8.9) K/mcL BMP 12/02/17 05:05 Sodium 140 Potassium 4.1 Chloride 104 Carbon Dioxide 32 H BUN 22 H Creatinine 0.84 Glucose 91 Calcium 9.3 - ABG Interpretation ABG results: PT/INR, D-dimer PT 12.1 Seconds (9.4-12.1) 12/02/17 05:05 - VTE Documentation of Mechanical Device: Intermittent pneumatic compression device Consult Discharge Plan - Plan Referrals: Josi Booth, COLOR CORRECTOR [Primary Care Provider] -
[2017-12-02] MEDS ORDERED: *HR* Warfarin 7.5 MG TABLET PO ONE (18:00)
[2017-12-02] MEDS: lamoTRIgine 100 MG TABLET PO SCH (21:32)
[2017-12-03 05:37] LABS: INR 1.1; Prothrombin Time 12.1 Seconds (9.4-12.1)
[2017-12-03] MEDS: FLUoxetine 20 MG CAPSULE PO SCH (07:43)
[2017-12-03] MEDS ORDERED: ceFAZolin 1,000 MG in Water for inj. (sterile) 10 ML IVPB ONE (08:33)
[2017-12-03] MEDS ORDERED: ceFAZolin 1,000 MG in Water for inj. (sterile) 20 ML 10 ML IVPB ONE (09:00)
[2017-12-03] MEDS ORDERED: *HR* Heparin 5,000 UNIT/ML VIAL IVP ONE (10:10)
[2017-12-03] MEDS ORDERED: *HR* Heparin 5,000 UNIT/ML VIAL IVP PRN (10:10)
[2017-12-03] MEDS ORDERED: Heparin 25,000 UNIT/500 ML D5W 25,000 UNIT/500 ML BAG IVC SCH (10:15)
[2017-12-03 11:01] LABS: Hematocrit 41.3 % (35.3-44.9); Mean Corpuscular HGB Conc 33.9 g/dL (31.6-35.5); Mean Corpuscular Hemoglobin 33.7 pg (28.0-33.3); Mean Corpuscular Volume 99.5 fL (83.0-100.0); Mean Platelet Volume 9.5 fL (9.4-12.4); Platelet Count 221 K/mcL (140-400); Red Blood Count 4.15 M/mcL (3.82-4.97); Red Cell Distribution Width 13.2 % (11.5-14.5)
--- NOTE | 2017-12-03 11:02 | Cardiology Consult Note ---
Date of Encounter: 12/03/17 Time of Encounter: 11:00 Assessment and Plan (1) History of heart valve replacement Current Visit: Yes Status: Chronic Hx of rheumatic heart disease s/p mechanical aortic and mitral valve replacements in 2012 with DORENE and MAZE procedures at that time. Has been anticoagulated on Coumadin since that time, goal INR 2.5-3.5. On admission, INR 8.5, so Coumadin was held, restarted 11/30 when INR was 1.3. INR has been subtherapeutic for 3 days without bridging. High risk for valve thrombosis. Heparin bolus and gtt has been started. Needs bridged until INR is therapeutic 2.5-3.5. TTE ordered to evaluate mechanical valves. TTE 11/11/17 LVEF 55-60%. Mechanical AV not well visualized. No by Doppler. Trace AR, may be paravalvular. Mechanical MV not well visualized. No MS by Doppler. Mild-moderate TR. (2) Pre-operative cardiovascular examination Current Visit: Yes Status: Acute Pre-operative cardiac risk stratification for possible kyphoplasty due to spinal fractures. Pt is able to achieve 4 METS (climb >1 flight of stairs without stopping, walks her dog regularly) without experiencing chest pain or dyspnea. Reports occasional exertional dyspnea with heavy exertion that she attributes to her COPD and tobacco abuse. LHC in 2012 at [facility] prior to valve replacements showed normal coronary arteries per review of [facility] records. No recent EKG on file. Will order. As above, INR has been subtherapeutic without bridging for 3 days with presence of mechanical mitral and aortic valves, high risk of valve thrombosis. Recommend pt be on heparin gtt for minimum of 24 hours prior to having procedure. Heparin gtt started today. Echo ordered to re-evaluate mechanical and mitral valves prior to procedure. TTE 11/11 EF preserved with no valvular stenosis noted. Once pt is on heparin gtt for 24 hours and if no significant findings on TTE, would be acceptable risk for kyphoplasty. Will be unable to stop heparin prior to or after surgery until INR is therapeutic. Discussion w patient/family: The assessment and plan as outlined above was discussed with the patient and/or family members who expressed understanding and agreement. All questions were answered. Thank you for involving us in the care of your patient. Please call with any questions. I will discuss all the above with Dr. Langston and make changes as necessary. History of Present Illness Consult date: 12/03/17 Requesting physician: Britt Aponte Consult reason: pre-op risk stratification Chief complaint: back pain History of present illness: Ms. Woods is a 57 year old female with PMH of temporal lobe epilepsy,A-Fib, hx of tachycardia induced CMP since recovered, rheumatic heart disease s/p mechanical aortic and mitral valve replacements in 2012 with MAZE and DORENE at that time, on chronic anticoagulation with Coumadin, and COPD who presented to [facility] 11/29 for elevated INR 8.5 at [facility]. Also complained of back pain for the past 2 weeks after helping someone move. Has been found to have fractures in her thoracic and lumbar spine. Has been seen by Dr. Mascorro as inpt , reportedly wants to do kyphoplasty. Cardiology consulted for cardiac risk stratification. Of note, INR has been subtherapeutic in 1 range the past 3 days , not on any bridging. Pt denies chest pain or any worsening dyspnea. Reports occasional exertional dyspnea she attributes to her COPD. Most recent LHC was 2012 at [facility], normal coronaries per record review. Prior CV testing: TTE 11/07/17: LVEF 55-60%. Indeterminate diastolic function. RV size not well visualized. Function appears normal. RV is not well visualized. Mechanical aortic valve not well visualized. No aortic stenosis by Doppler. Trace aortic regurgitation, may be paravalvular. Mechanical mitral valve not well visualized. No mitral stenosis by Doppler. Mild-moderate tricuspid regurgitation. No pulmonary hypertension on this study.] [facility] 01/2013 [facility] normal coronaries Past Med Surg Social Fam HX - Past Medical History Medical history: CHF, hyperlipidemia, hypertension, seizures, thyroid disease, valvular heart disease (S/P mitral and aortic valve replacement) Psychiatric history: bipolar, depression - Past Surgical History Surgical History: heart valve replacement - Social History Smoking Status: Current every day smoker Packs per day: <pk per day Smokeless Tobacco Status: No Alcohol use: none Drug use: none - Family History Father Living Status: Age at : 53 Cause of : mi Hx Family Cardiac Disorders: Yes Hx Family Respiratory Disorders: No Hx Family Cancer: No Hx Family GI Disorders: No Hx Family Genitourinary Disorders: No Hx Family Endocrine Disorder: No Hx Family Musculoskeletal Disorders: No Hx Family Neuromuscular Disorders: No Hx Family Neurologic Disorders: No Hx Family HEENT Disorders: No Hx Family Autoimmune Disorders: No Hx Family Reproductive Disorders: No Hx Family Psychosocial Disorders: No Hx Family Medical Disorders: No Mother Living Status: Age at : 83 Medications and Allergies Carvedilol [Carvedilol] 3.125 mg PO BID 11/29/17 [History] FLUoxetine HCl [PROzac] 20 mg PO DAILY 11/29/17 [History] Levothyroxine [Synthroid] 88 mcg PO 0630 11/29/17 [History] Pravastatin Sodium [Pravachol] 40 mg PO HS 11/29/17 [History] Quetiapine Fumarate [Seroquel] 150 mg PO HS 11/29/17 [History] Warfarin [Coumadin] 5 mg PO MOWETHFRSA 11/29/17 [History] Warfarin [Coumadin] 7.5 mg PO SUTU 11/29/17 [History] clonazePAM [Klonopin] 1 mg PO BID PRN 11/29/17 [History] lamoTRIgine [Lamictal Xr] 200 mg PO HS 11/29/17 [History] predniSONE [PredniSONE] See Taper PO TAPER 11/29/17 [History] 3 Allergy/AdvReac Type Severity Reaction Status Date / Time No Known Allergies Allergy Verified 11/29/17 17:20 All Systems Review: The remainder of the systems were reviewed and are negative - Cardiovascular Cardiovascular: as per HPI, dyspnea on exertion Physical Examination Vital Signs, Last 4 Hours Pulse Ox 12/03/17 07:48 95 Vital Signs Temp Pulse Resp BP Pulse Ox 12/03/17 07:48 95 12/03/17 06:56 98.0 F 74 16 105/68 95 12/03/17 03:36 98.1 F 69 16 101/71 97 12/02/17 23:39 97.8 F 68 14 100/68 95 12/02/17 21:30 77 115/77 12/02/17 19:18 98.6 F 74 19 105/71 95 12/02/17 14:43 98.1 F 70 18 103/71 97 Intake and Output 12/02/17 12/03/17 12/03/17 23:59 07:59 15:59 Intake Total 240 / 240 Balance 240 / 240 Intake: Oral 240 / 240 Other: Meal Dinner Percent of Meal Consumed 100% Stool Size Small Stool Consistency soft Stool Color Brown Weight 70.3 kg Patient Weight 12/03/17 23:59 Weight 70.3 kg General: Conversant, No Apparent Distress HEENT: Atraumatic, Normocephaly, Mucus Membranes Moist Neck: No JVD, Normal carotid pulses Cardiac: Reg Rate and Rhythm, Other (click noted) Lungs: Other (mild wheezes) Neuro: Alert and responsive, No focal deficits noted Abdomen: Soft, Non-Tender Skin: No rashes noted on visualized skin Musculoskeletal: No Chest Wall Tenderness Extremities: No Clubbing, No Cyanosis, No Edema, Normal Pulses Results 12/03/17 10:35 12/02/17 05:05 Lab Results 12/03/17 04:33 INR 1.1 Short CBC 12/03/17 Range/Units 10:35 WBC 9.0 (4.3-11.1) K/mcL Hgb 14.0 (11.5-15.4) g/dL Hct 41.3 (35.3-44.9) % Plt Count 221 (140-400) K/mcL Impressions Chest X-Ray 12/03/17 08:43 IMPRESSION: Left midlung and bibasilar atelectasis. No focal consolidation. D/ / Yadira Delgadillo MD / Yadira Delgadillo MD Interpreting Provider: Yadira Delgadillo MD Active Medications Acetaminophen (Tylenol) 650 mg PO Q6HR PRN PRN Reason: Mild Pain/Fever Stop: 06/01/18 00:47 Last Admin: 12/01/17 16:35 Dose: 650 mg Atorvastatin Calcium (Lipitor) 10 mg PO HS NARCISO Stop: 06/01/18 21:01 Last Admin: 12/02/17 21:32 Dose: 10 mg Carvedilol (Coreg) 3.125 mg PO BID NARCISO Stop: 06/01/18 09:01 Last Admin: 12/03/17 07:43 Dose: 3.125 mg Clonazepam (Klonopin) 1 mg PO BID PRN PRN Reason: Anxiety Stop: 06/01/18 00:54 Last Admin: 12/02/17 12:51 Dose: 1 mg Fentanyl (Duragesic) [address] [facility] Stop: 06/03/18 12:31 Last Admin: 12/02/17 12:41 Dose: 25 mcg Fluoxetine HCl (Prozac) 20 mg PO DAILY NARCISO PRN Reason: Protocol Stop: 06/01/18 09:01 Last Admin: 12/03/17 07:43 Dose: 20 mg Heparin Sodium (Porcine) (Heparin) 4,900 unit 70 unit/kg (4900 unit) IVP Q6HR PRN PRN Reason: SEE COMMENTS Stop: 06/04/18 10:11 Heparin Sodium (Porcine) (Heparin) 2,500 unit 35 unit/kg (2500 unit) IVP Q6H PRN PRN Reason: SEE COMMENTS Stop: 06/04/18 10:11 Heparin Sodium/Dextrose (Heparin 25,000 Unit/500 Ml D5w) 25,000 unit in 500 mls @ 19.684 mls/hr IVC .Q24H NARCISO; 14 UNIT/KG/HR PRN Reason: Protocol Stop: 06/04/18 10:16 Last Admin: 12/03/17 10:59 Dose: 14 unit/kg/hr, 19.684 mls/hr Lamotrigine (Lamictal) [address] [facility] Stop: 06/01/18 01:01 Last Admin: 12/02/17 21:32 Dose: 200 mg Levothyroxine Sodium (Synthroid) [address] [facility] Stop: 06/01/18 06:31 Last Admin: 12/03/17 05:48 Dose: 88 mcg Naloxone HCl (Narcan) 0.4 mg IVP Q2MIN PRN PRN Reason: SEE COMMENTS Stop: 06/01/18 00:47 Ondansetron HCl (Zofran) 4 mg IVP Q6HR PRN; Protocol PRN Reason: Nausea Stop: 06/01/18 09:34 Last Admin: 11/30/17 09:43 Dose: 4 mg Oxycodone/Acetaminophen (Percocet 5/325) 1 each PO Q6HR PRN PRN Reason: Severe Pain Stop: 06/03/18 13:31 Promethazine HCl (Phenergan) 12.5 mg IVP Q6HR PRN PRN Reason: Nausea And Vomiting Stop: 06/01/18 14:41 Last Admin: 11/30/17 16:18 Dose: 12.5 mg Quetiapine Fumarate (Seroquel) 150 mg PO HS NARCISO Stop: 06/01/18 01:01 Last Admin: 12/02/17 21:32 Dose: 150 mg Warfarin Sodium (Coumadin Perpt) 1 each PO DAILY@1800 PRN PRN Reason: SEE COMMENTS Stop: 06/02/18 18:01 - Imaging and Cardiology Echo: report reviewed Consult Discharge Plan - Plan Referrals: Josi Booth, EAR MACHINE OPERATOR [Primary Care Provider] -
[2017-12-03 11:10] LABS: INR 1.1; Prothrombin Time 12.3 Seconds (9.4-12.1)
[2017-12-03 11:12] LABS: Activated Partial Thrombo Time 28.9 Seconds (26.0-36.0)
--- NOTE | 2017-12-03 13:34 | Internal Med Progress Note ---
Date of Encounter: 12/03/17 Time of Encounter: 09:20 - Assessment and plan (1) S/P AVR (aortic valve replacement) Current Visit: Yes Status: Chronic Assessment and plan: Pt with mechanical aortic and mitral valves. Anticoagulated with Coumadin. INR 1.1. Subtherapeutic. Continue Heparin gtt, monitor labs. Titrate gtt per protocol. Continue to monitor INR. TTE to evaluate valves. (2) Elevated INR Current Visit: Yes Status: Resolved Assessment and plan: Resolved. Warfarin restarted. Monitoring INR. Bridging with Heparin gtt. Monitor labs. (3) At high risk for falls Current Visit: Yes Status: Chronic Assessment and plan: Monitor for safety and falls. Pt reports several falls over the last 6 months. Pt has steady gait in the room, reminded her that she should use call light for assistance to avoid falls. Verbalized understanding. (4) Compression fracture Current Visit: Yes Status: Acute Assessment and plan: Chronic T6 and L1 compression fractures. Pain control adequate. Fentanyl patch 50mcg TID, pain well controlled now. Percocet 5/325mg po q6h prn severe breakthrough pain Maintain brace Pt has been evaluated by Dr. Mascorro and will undergo kyphoplasty. For Surgical clearance: Chest Xray 12/03/17- Left midlung and bibaseilar atelectasis, no focal consolidations. No acute processes. LUngs are clear and diminished throughout. Pt is a current smoker, approximately 1/2 PPD. EKG ordered and pending completion. Pt has been evaluated by cardiology, per their note: pt appears to be an acceptable risk candidate for kypoplasty. Heparin gtt off 4 hours prior to prodedure, will defer to surgery for time to restart heparin gtt. Lumbar Spine MRI 11/30/17 00:52 IMPRESSION: Abnormal STIR signal involving the T12 vertebral body, which extends into the bilateral posterior elements, right greater than left. There is a fluid signal within the superior endplate of T12 vertebral body. Findings may represent acute fracture if there is recent history of trauma. Underlying lesion cannot be excluded on noncontrast examination. Consider follow-up examination, if there is a concern for pathologic fracture. Consider further evaluation with a CT to better define the fracture line. Chronic T6 and L1 compression fractures, as detailed above. Abnormal STIR signal involving the superior endplate of C7 vertebral body may represent degenerative changes, or minimal superior endplate fracture. Correlate with any symptoms in cervical spine lesion. This is partially imaged on thoracic spine MRI. Abnormal T2 signal within the bilateral sacrum. Possibility of bilateral sacral insufficiency fractures should be considered given degree of osteopenia on the radiographic examination. Multilevel degenerative changes of the thoracic and lumbar spine, as detailed above. No significant spinal canal stenosis. D/ / 11/30/2017 12:35:01 Tyson Cesar MD / yana Interpreting Provider: Tyson Cesar MD Thoracic Spine MRI 11/30/17 00:52 IMPRESSION: Abnormal STIR signal involving the T12 vertebral body, which extends into the bilateral posterior elements, right greater than left. There is a fluid signal within the superior endplate of T12 vertebral body. Findings may represent acute fracture if there is recent history of trauma. Underlying lesion cannot be excluded on noncontrast examination. Consider follow-up examination, if there is a concern for pathologic fracture. Consider further evaluation with a CT to better define the fracture line. Chronic T6 and L1 compression fractures, as detailed above. Abnormal STIR signal involving the superior endplate of C7 vertebral body may represent degenerative changes, or minimal superior endplate fracture. Correlate with any symptoms in cervical spine lesion. This is partially imaged on thoracic spine MRI. Abnormal T2 signal within the bilateral sacrum. Possibility of bilateral sacral insufficiency fractures should be considered given degree of osteopenia on the radiographic examination. Multilevel degenerative changes of the thoracic and lumbar spine, as detailed above. No significant spinal canal stenosis. D/ : / 11/30/2017 12:35:01 Tyson Cesar MD / yana Interpreting Provider: Tyson Cesar MD (5) DVT prophylaxis Current Visit: Yes Status: Acute Assessment and plan: Pt on Heparin gtt, she is ambulatory in the room to and from bathroom. Calf pumps also ordered. (6) FRANCISCO (acute kidney injury) Current Visit: Yes Status: Resolved Assessment and plan: Resolved. Continue to avoid nephrotoxins and monitor labs. - Time Spent With Patient Total time spent is greater than 50% in coordination of care (as documented) at patient's floor/unit and/or counseling patient: less than 15 minutes - Subjective Interval history: Pt was seen and assessed at bedside at 0920. Pt reports that pain is under control. Pt's gait is steady, ambulates in the room to and from the bathroom without assitance. She was pleasant and calm. She denies n/v abdominal pain, headache, blurred vision, chest pain, or shortness of breath. Pt is aware that surgery will likely be tomorrow, all questions answered. - Constitutional Vitals: Temp Pulse Resp BP Pulse Ox 98.8 F 67 15 118/78 92 12/03/17 11:41 12/03/17 11:41 12/03/17 11:41 12/03/17 11:41 12/03/17 11:41 General appearance: Present: cooperative, A&O X 3, pleasant, no acute distress, answers questions appropriately - Head Head exam: Present: atraumatic, normal inspection, normocephalic - Eye Eye exam: Present: normal appearance, conjuntiva pink, sclera anicteric - Neck Neck exam general surgery: Present: supple, trachea midline. Absent: lymphadenopathy, tenderness - Respiratory Respiratory exam: Present: CTAB. Absent: accessory muscle use, rales, respiratory distress, rhonchi, wheezes - Cardiovascular Cardiovascular exam: Present: RRR, +S1, +S2. Absent: diastolic murmur, gallop, rubs, systolic murmur - GI/Abdominal GI/Abdominal exam: Present: normal bowel sounds, soft. Absent: distended, hepatomegaly, tenderness - Extremities Exam Extremities exam: Present: normal capillary refill, normal inspection, warm, radial pulses palpable and symmetrical. Absent: calf tenderness, cyanotic, pedal edema, tenderness - Neurological Exam Neurological exam: Present: alert, oriented X3, no focal deficits, strengths equal and symetr throughout. Absent: abnormal gait, altered, facial droop, speech deficit - Skin Skin exam: Present: dry, intact, normal color, warm. Absent: rash Internal Medicine: Result - Labs CBC & Chem 7: 12/03/17 10:35 12/02/17 05:05 Labs: Short CBC 12/03/17 Range/Units 10:35 WBC 9.0 (4.3-11.1) K/mcL Hgb 14.0 (11.5-15.4) g/dL Hct 41.3 (35.3-44.9) % Plt Count 221 (140-400) K/mcL - ABG Interpretation ABG results: PT/INR, D-dimer PT 12.3 Seconds (9.4-12.1) H 12/03/17 10:35 - Impressions Impressions Chest X-Ray 12/03/17 08:43 IMPRESSION: Left midlung and bibasilar atelectasis. No focal consolidation. D/ / Yadira Delgadillo MD / Yadira Delgadillo MD Interpreting Provider: Yadira Delgadillo MD - VTE Documentation of Mechanical Device: Intermittent pneumatic compression device Consult Discharge Plan - Plan Referrals: Josi Booth, METAL CASTING TRADES WORKER [Primary Care Provider] -
[2017-12-03] MEDS ORDERED: *HR* Warfarin 5 MG TABLET PO ONE (18:00)
[2017-12-03 18:14] LABS: Activated Partial Thrombo Time 182.2 Seconds (26.0-36.0)
[2017-12-03 18:28] LABS: Heparin anti-factor XA UFH 1.18 IU/mL (0.30-0.70)
--- NOTE | 2017-12-03 19:19 | Anesthesia Evaluation PreOp ---
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: Seizures (temporal lobe epilepsy), Other (Bipolar, Depression) Other Medical History: Thyroid Anesthesia History: Past Anesthesia (MVR and AVR) : No Alcohol Use: none Drug use: none Medications and Allergies Carvedilol [Carvedilol] 3.125 mg PO BID 11/29/17 [History] FLUoxetine HCl [PROzac] 20 mg PO DAILY 11/29/17 [History] Levothyroxine [Synthroid] 88 mcg PO 30 11/29/17 [History] Pravastatin Sodium [Pravachol] 40 mg PO HS 11/29/17 [History] Quetiapine Fumarate [Seroquel] 150 mg PO HS 11/29/17 [History] Warfarin [Coumadin] 5 mg PO MOWETHFRSA 11/29/17 [History] Warfarin [Coumadin] 7.5 mg PO SUTU 11/29/17 [History] clonazePAM [Klonopin] 1 mg PO BID PRN 11/29/17 [History] lamoTRIgine [Lamictal Xr] 200 mg PO HS 11/29/17 [History] predniSONE [PredniSONE] See Taper PO TAPER 11/29/17 [History] 3 Allergy/AdvReac Type Severity Reaction Status Date / Time No Known Allergies Allergy Verified 11/29/17 17:20 - Meds/Allergy Pre-op Review Medications Reviewed: Yes Allergies Reviewed: Yes Beta Blockers on Current Med List: Yes If Beta Blockers taken, Date/Time (Last Dose taken): 07:30 12/03/2017 needs AM dose Anesthesia Results - Labs 12/03/17 10:35 12/02/17 05:05 Echocardiogram Name: Maria T Megan Woods Date of Study: 11/07/2017 EV/EV echocardiogram Impressions: LVEF 55-60%. Indeterminate diastolic function. RV size not well visualized. Function appears normal. RV is not well visualized. Mechanical aortic valve not well visualized. No aortic stenosis by Doppler. Trace aortic regurgitation, may be paravalvular. Mechanical mitral valve not well visualized. No mitral stenosis by Doppler. Mild-moderate tricuspid regurgitation. No pulmonary hypertension on this study. Cardiology consult Regarding risk stratification, patient able to achieve more than 4 METS of activity without chest discomfort. History of normal coronary arteries. Patient appears to be an acceptable risk candidate for kyphoplasty. Recommend heparin bridging before and after the procedure. Since she has been subtherapeutic, recommend start heparin now and check TTE. All questions answered. Thanks, Omar Langston, DO, FACC Anesthesia Exam Vital Signs/O2 Sat, Most Current Temp Pulse Resp BP Pulse Ox 98.9 F 73 15 108/69 95 12/03/17 18:56 12/03/17 18:56 12/03/17 18:56 12/03/17 18:56 12/03/17 18:56 <Elizabeth Danielle - Last Filed: 12/04/17 15:01> Date of Encounter: 12/04/17 Anesthesia Results - Labs 12/04/17 01:17 12/04/17 01:17 Laboratory Results WBC 9.3 K/mcL (4.3-11.1) 12/04/17 01:17 RBC 4.17 M/mcL (3.82-4.97) 12/04/17 01:17 Hgb 14.5 g/dL (11.5-15.4) 12/04/17 01:17 Hct 41.7 % (35.3-44.9) 12/04/17 01:17 MCV 100.0 fL (83.0-100.0) 12/04/17 01:17 MCH 34.8 pg (28.0-33.3) H 12/04/17 01:17 MCHC 34.8 g/dL (31.6-35.5) 12/04/17 01:17 RDW 13.2 % (11.5-14.5) 12/04/17 01:17 Plt Count 229 K/mcL (140-400) 12/04/17 01:17 MPV 9.5 fL (9.4-12.4) 12/04/17 01:17 Immature Gran % 2.7 % (0-4) 12/04/17 01:17 Seg Neutrophils % 64.6 % 12/04/17 01:17 Lymphocytes % 21.0 % 12/04/17 01:17 Monocytes % 7.3 % 12/04/17 01:17 Eosinophils % 3.5 % 12/04/17 01:17 Basophils % 0.9 % 12/04/17 01:17 Neutrophils # 6.0 K/mcL (1.6-8.9) 12/04/17 01:17 Lymphocytes # 2.0 K/mcL (0.6-4.6) 12/04/17 01:17 Monocytes # 0.7 K/mcL (0.0-1.3) 12/04/17 01:17 Eosinophils # 0.3 K/mcL (0.0-0.6) 12/04/17 01:17 Basophils # 0.1 K/mcL (0.0-0.2) 12/04/17 01:17 PT 14.0 Seconds (9.4-12.1) H 12/04/17 01:17 INR 1.3 12/04/17 01:17 APTT 77.2 Seconds (26.0-36.0) H 12/04/17 08:14 Heparin Anti-Xa, Unfract 1.18 IU/mL (0.30-0.70) H* 12/03/17 17:38 Sodium 138 mEq/L (136-145) 12/04/17 01:17 Potassium 4.3 mEq/L (3.5-5.1) 12/04/17 01:17 Chloride 104 mEq/L (98-107) 12/04/17 01:17 Carbon Dioxide 28 mEq/L (23-29) 12/04/17 01:17 BUN 26 mg/dL (6-20) H 12/04/17 01:17 Creatinine 0.83 mg/dL (0.60-1.20) 12/04/17 01:17 Est GFR ( Amer) > 60 (> 60) 12/04/17 01:17 Est GFR (Non-Af Amer) > 60 (> 60) 12/04/17 01:17 BUN/Creatinine Ratio 31 (6-26) H 12/04/17 01:17 Glucose 115 mg/dL (70-105) H 12/04/17 01:17 Calculated Osmolality 292 (280-300) 12/04/17 01:17 Calcium 9.6 mg/dL (8.6-10.3) 12/04/17 01:17 Phosphorus 2.9 mg/dL (2.7-4.5) 11/30/17 05:37 Magnesium 2.2 mg/dL (1.6-2.6) 11/30/17 05:37 Total Bilirubin 0.4 mg/dL (0.3-1.0) 11/30/17 05:37 AST 18 Units/L (13-39) 11/30/17 05:37 ALT 13 Units/L (7-52) 11/30/17 05:37 Alkaline Phosphatase 89 Units/L (34-104) 11/30/17 05:37 Serum Total Protein 6.3 g/dL (6.4-8.9) L 11/30/17 05:37 Albumin 3.8 g/dL (3.5-5.7) 11/30/17 05:37 Globulin 2.5 g/dL (2.4-3.5) 11/30/17 05:37 Albumin/Globulin Ratio 1.5 (1.1-2.2) 11/30/17 05:37 Impressions Lumbar Spine MRI 11/30/17 00:52 IMPRESSION: 1. Abnormal STIR signal involving T12 vertebral body, which extends into bilateral posterior elements, right greater than left. There is fluid signal within superior endplate of T12 vertebral body. Findings may represent acute fracture if there is recent history of trauma. Underlying lesion cannot be excluded on noncontrast examination. Consider follow-up examination, if there is a concern for pathologic fracture. Consider further evaluation with CT to better define the fracture line. 2. Abnormal T2 signal within the bilateral sacrum. Possibility of bilateral sacral insufficiency fractures should be considered given degree of osteopenia on the radiographic examination. 3. Abnormal STIR signal involving superior endplate of C7 vertebral body may represent degenerative changes, or minimal superior endplate fracture. Correlate with any symptoms in cervical spine lesion. This is partially imaged on thoracic spine MRI. 4. Chronic T6 and L1 compression fractures, as detailed above. 5. Multilevel degenerative changes of the thoracic and lumbar spine, as detailed above. No significant spinal canal stenosis. D/ / 11/30/2017 12:35:01 Tyson Cesar MD / yana Interpreting Provider: Tyson Cesar MD Thoracic Spine MRI 11/30/17 00:52 IMPRESSION: 1. Abnormal STIR signal involving T12 vertebral body, which extends into bilateral posterior elements, right greater than left. There is fluid signal within superior endplate of T12 vertebral body. Findings may represent acute fracture if there is recent history of trauma. Underlying lesion cannot be excluded on noncontrast examination. Consider follow-up examination, if there is a concern for pathologic fracture. Consider further evaluation with CT to better define the fracture line. 2. Abnormal T2 signal within the bilateral sacrum. Possibility of bilateral sacral insufficiency fractures should be considered given degree of osteopenia on the radiographic examination. 3. Abnormal STIR signal involving superior endplate of C7 vertebral body may represent degenerative changes, or minimal superior endplate fracture. Correlate with any symptoms in cervical spine lesion. This is partially imaged on thoracic spine MRI. 4. Chronic T6 and L1 compression fractures, as detailed above. 5. Multilevel degenerative changes of the thoracic and lumbar spine, as detailed above. No significant spinal canal stenosis. D/ / 11/30/2017 12:35:01 Tyson Csear MD / yana Interpreting Provider: Tyson Cesar MD Chest X-Ray 12/03/17 08:43 IMPRESSION: Left midlung and bibasilar atelectasis. No focal consolidation. D/ / Yadira Delgadillo MD / Yadira Delgadillo MD Interpreting Provider: Yadira Delgadillo MD Echocardiogram 12/03/17 10:36 Impressions: LVEF 55%. Indeterminate diastolic function. RV size is not well visualized. Function appears normal. S/p mechanical aortic valve. Mild aortic regurgitation, possibly paravalvular. No Aortic stenosis. S/p mechanical mitral valve. Normal function by Doppler. Mild tricuspid regurgitation. No pulmonary hypertension. Left Ventricular Wall Motion: Rest Echo Findings All wall segments showed normal motion. Anesthesia Exam Vital Signs Temp Pulse Resp BP Pulse Ox 12/04/17 13:15 98.8 F 61 16 101/78 97 12/04/17 11:30 99.1 F 67 14 99/69 95 12/04/17 06:56 98.7 F 66 16 106/72 95 12/04/17 03:38 97.6 F 65 15 115/77 96 12/03/17 23:09 98.3 F 66 14 108/71 96 12/03/17 18:56 98.9 F 73 15 108/69 95 Intake and Output 12/03/17 12/04/17 12/04/17 23:59 07:59 15:59 Intake Total 136 / 136 99 / 99 104 / 104 Balance 136 / 136 99 / 99 104 / 104 Intake: IV Fluids 136 / 136 99 / 99 104 / 104 Heparin 25,000 UNIT/500 ML D5W 136 / 136 99 / 99 104 / 104 25,000 unit In 500 ml @ 14 UNIT /KG/HR 19.684 mls/hr IVC .Q24H [facility] Rx#:[id number] Other: Meal Dinner Percent of Meal Consumed 40% # Voids 1 Weight 69.9 kg Patient Weight 12/04/17 23:59 Weight 69.9 kg
[2017-12-03] MEDS: lamoTRIgine 100 MG TABLET PO SCH (19:56)
[2017-12-04 01:29] LABS: Basophils # 0.1 K/mcL (0.0-0.2); Basophils % 0.9 %; Eosinophils # 0.3 K/mcL (0.0-0.6); Eosinophils % 3.5 %; Hematocrit 41.7 % (35.3-44.9); Hemoglobin 14.5 g/dL (11.5-15.4); Immature Granulocytes % 2.7 % (0-4); Mean Corpuscular HGB Conc 34.8 g/dL (31.6-35.5); Mean Corpuscular Hemoglobin 34.8 pg (28.0-33.3); Mean Platelet Volume 9.5 fL (9.4-12.4); Monocytes # 0.7 K/mcL (0.0-1.3); Monocytes % 7.3 %; Platelet Count 229 K/mcL (140-400); Red Blood Count 4.17 M/mcL (3.82-4.97); Red Cell Distribution Width 13.2 % (11.5-14.5); Segmented Neutrophils % 64.6 %
[2017-12-04 01:35] LABS: INR 1.3
[2017-12-04 01:50] LABS: BUN/Creatinine Ratio 31 (6-26); Blood Urea Nitrogen 26 mg/dL (6-20); Calcium 9.6 mg/dL (8.6-10.3); Carbon Dioxide 28 mEq/L (23-29); Chloride 104 mEq/L (98-107); Glucose 115 mg/dL (70-105); Osmolality,Calculated 292 (280-300); Potassium 4.3 mEq/L (3.5-5.1); Sodium 138 mEq/L (136-145); eGFR For African Americans > 60 (> 60); eGFR For Non-African Americans > 60 (> 60)
--- NOTE | 2017-12-04 07:33 | Spinal Consult Note ---
Date of Encounter: 12/03/17 Time of Encounter: 08:05 Assessment and Plan (1) Vertebral compression fracture Current Visit: Yes Status: Acute On exam she is lying in bed in moderate distress secondary to back pain especially with any movement. Afebrile vital signs stable. She is neurovascularly intact with regard to her bilateral upper and lower extremities. She has limited range of motion of the lumbar spine. She has tenderness to palpation in the thoracic or lumbar region posteriorly. She has a negative straight leg raise. Her hips move symmetrically. She has no clonus. MRI of the lumbar spine reveals acute compression fractures at T12 and L1. There is no significant retropulsion of fragments in the canal. There are multilevel degenerative changes. Impression: 1) osteopenia 2) acute vertebral compression fractures T12 and L1 Plan: I had a long discussion with the patient. She is failing bracing and analgesics. I will offer her vertebral augmentation in the form of a kyphoplasty T12 and L1. Risk benefits possible complications and alternatives were fully discussed with the patient. Patient understands she must be medically optimized and cleared prior to any surgical intervention. The patient understands and would like to proceed with the procedure. Qualifiers: Encounter type: initial encounter Qualified Code(s): M48.50XA - Collapsed vertebra, not elsewhere classified, site unspecified, initial encounter for fracture (2) Osteopenia Current Visit: Yes Status: Acute Qualifiers: Osteopenia location: lumbar spine Qualified Code(s): M85.88 - Other specified disorders of bone density and structure, other site History of Present Illness Chief complaint: back pain HPI: Ms. Woods is a 57 year old female Was sustained a fall approximately 1 week ago and experienced severe low back pain. She was seen in the emergency department and found to have compression fractures. She was seen on an outpatient basis in the [facility] and started on analgesic(and bracing. Despite these measures she has continued with severe intractable back pain he was admitted for pain control and definitive management. She complains of significant back pain especially with movement. She denies any significant radicular symptoms. She denies any fevers or chills. During this hospitalization she has had an MRI of her thoracic or lumbar spine. She rates the pain as an 8 on a pain scale. Past Med Surg Social Fam HX - Past Medical History Medical history: CHF, hyperlipidemia, hypertension, seizures, thyroid disease, valvular heart disease (S/P mitral and aortic valve replacement) Psychiatric history: bipolar, depression - Past Surgical History Surgical History: heart valve replacement - Social History Smoking Status: Current every day smoker Packs per day: <pk per day Smokeless Tobacco Status: No Alcohol use: none Drug use: none - Family History Father Living Status: Age at : 53 Cause of : mi Hx Family Cardiac Disorders: Yes Hx Family Respiratory Disorders: No Hx Family Cancer: No Hx Family GI Disorders: No Hx Family Genitourinary Disorders: No Hx Family Endocrine Disorder: No Hx Family Musculoskeletal Disorders: No Hx Family Neuromuscular Disorders: No Hx Family Neurologic Disorders: No Hx Family HEENT Disorders: No Hx Family Autoimmune Disorders: No Hx Family Reproductive Disorders: No Hx Family Psychosocial Disorders: No Hx Family Medical Disorders: No Mother Living Status: Age at : 83 Medications and Allergies Carvedilol [Carvedilol] 3.125 mg PO BID 11/29/17 [History] FLUoxetine HCl [PROzac] 20 mg PO DAILY 11/29/17 [History] Levothyroxine [Synthroid] 88 mcg PO 0630 11/29/17 [History] Pravastatin Sodium [Pravachol] 40 mg PO HS 11/29/17 [History] Quetiapine Fumarate [Seroquel] 150 mg PO HS 11/29/17 [History] Warfarin [Coumadin] 5 mg PO MOWETHFRSA 11/29/17 [History] Warfarin [Coumadin] 7.5 mg PO SUTU 11/29/17 [History] clonazePAM [Klonopin] 1 mg PO BID PRN 11/29/17 [History] lamoTRIgine [Lamictal Xr] 200 mg PO HS 11/29/17 [History] predniSONE [PredniSONE] See Taper PO TAPER 11/29/17 [History] 3 Allergy/AdvReac Type Severity Reaction Status Date / Time No Known Allergies Allergy Verified 11/29/17 17:20 Results - Labs Result Diagrams: 12/04/17 01:17 12/04/17 01:17 Labs: Abnormal lab results MCH 34.8 pg (28.0-33.3) H 12/04/17 01:17 PT 14.0 Seconds (9.4-12.1) H 12/04/17 01:17 APTT 84.4 Seconds (26.0-36.0) H 12/04/17 01:17 Heparin Anti-Xa, Unfract 1.18 IU/mL (0.30-0.70) H* 12/03/17 17:38 BUN 26 mg/dL (6-20) H 12/04/17 01:17 BUN/Creatinine Ratio 31 (6-26) H 12/04/17 01:17 Glucose 115 mg/dL (70-105) H 12/04/17 01:17 Serum Total Protein 6.3 g/dL (6.4-8.9) L 11/30/17 05:37 H & H 12/03/17 12/04/17 Range/Units 10:35 01:17 Hgb 14.0 14.5 (11.5-15.4) g/dL Hct 41.3 41.7 (35.3-44.9) % All other labs normal. Consult Discharge Plan - Plan Referrals: Josi Booth, ISABEL [Primary Care Provider] -
--- NOTE | 2017-12-04 11:52 | Cardiology Progress Note ---
Date of Encounter: 12/04/17 Time of Encounter: 11:50 Assessment and Plan (1) History of heart valve replacement Current Visit: Yes Status: Chronic Hx of rheumatic heart disease s/p mechanical aortic and mitral valve replacements in 2012 with DORENE and MAZE procedures at that time. Anticoagulated on Coumadin since that time, goal INR 2.5-3.5. On admission, INR 8.5, Coumadin was held, restarted 11/30 when INR was 1.3. INR was subtherapeutic for 3 days without bridging. Risk for valve thrombosis. Heparin bolus and gtt started. Needs bridged until INR is therapeutic 2.5-3.5. TTE ordered to evaluate mechanical valves. LVEF 55%. S/p mechanical aortic valve. Mild AR, possibly paravalvular. No . S/p mechanical MV. Normal function by Doppler. Mild TR. Heparin gtt cannot be held given her mechanical aortic and mitral valves. Continue heparin gtt until INR is therapeutic. Cannot be discharged home until INR is 2.5-3.5. Cardiology signing off. Reconsult PRN. (2) Pre-operative cardiovascular examination Current Visit: Yes Status: Acute Pre-operative cardiac risk stratification for possible kyphoplasty due to spinal fractures. Pt is able to achieve 4 METS (climb >1 flight of stairs without stopping, walks her dog regularly) without experiencing chest pain or dyspnea. LHC in 2012 at [facility] prior normal coronary arteries. EKG SR, no acute changes. As above, INR subtherapeutic without bridging for 3 days with presence of mechanical mitral and aortic valves, risk of valve thrombosis. Recommend pt be on heparin gtt for minimum of 24 hours prior to having procedure. Heparin gtt started yesterday. Echo EF preserved with no valvular stenosis noted. Acceptable risk for kyphoplasty. Will be unable to stop or hold heparin prior to or after surgery until INR is therapeutic 2.5-3.5. Cardiology signing off. Reconsult PRN. Discussion w patient/family: The assessment and plan as outlined above was discussed with the patient and/or family members who expressed understanding and agreement. All questions were answered. Thank you for involving us in the care of your patient. Please call with any questions. I will discuss all the above with Dr. Langston and make changes as necessary. Subjective Principal diagnosis: Spinal fx, mechanical AV and MV Interval history: INR 1.3 today, on heparin gtt. TTE resulted--LVEF 55%. RV size is not well visualized. Function appears normal. S/p mechanical aortic valve. Mild aortic regurgitation, possibly paravalvular. No Aortic stenosis. S/p mechanical mitral valve. Normal function by Doppler. Mild tricuspid regurgitation. No pulmonary hypertension. Objective Vital Signs, Last 4 Hours Temp Pulse Resp BP Pulse Ox 12/04/17 11:30 99.1 F 67 14 99/69 95 Vital Signs Temp Pulse Resp BP Pulse Ox 12/04/17 11:30 99.1 F 67 14 99/69 95 12/04/17 06:56 98.7 F 66 16 106/72 95 12/04/17 03:38 97.6 F 65 15 115/77 96 12/03/17 23:09 98.3 F 66 14 108/71 96 12/03/17 18:56 98.9 F 73 15 108/69 95 12/03/17 14:42 98.0 F 66 15 107/71 95 Intake and Output 12/03/17 12/04/17 12/04/17 23:59 07:59 15:59 Intake Total 136 / 136 99 / 99 104 / 104 Balance 136 / 136 99 / 99 104 / 104 Intake: IV Fluids 136 / 136 99 / 99 104 / 104 Heparin 25,000 UNIT/500 ML D5W 136 / 136 99 / 99 104 / 104 25,000 unit In 500 ml @ 14 UNIT /KG/HR 19.684 mls/hr IVC .Q24H [facility] Rx#:[id number] Other: Meal Dinner Percent of Meal Consumed 40% # Voids 1 Weight 69.9 kg Patient Weight 12/04/17 23:59 Weight 69.9 kg General: Conversant, No Apparent Distress HEENT: Atraumatic, Normocephaly, Mucus Membranes Moist Neck: No JVD, Normal carotid pulses Cardiac: Reg Rate and Rhythm, Normal S1 and S2, Other (audible click) Lungs: Normal Breath Sounds, No Wheeze, Rales, Rhonchi Neuro: Alert and responsive, No focal deficits noted Abdomen: Soft, Non-Tender Skin: No rashes noted on visualized skin Musculoskeletal: No Chest Wall Tenderness Extremities: No Clubbing, No Cyanosis, No Edema, Normal Pulses Results 12/04/17 01:17 12/04/17 01:17 Lab Results 12/03/17 12/03/17 12/04/17 17:38 20:02 01:17 WBC Hgb Hct Plt Count INR 1.3 APTT 182.2 H* D 75.6 H D Sodium Potassium Chloride Carbon Dioxide BUN Creatinine Glucose Calcium 12/04/17 12/04/17 12/04/17 01:17 01:17 01:17 WBC 9.3 Hgb 14.5 Hct 41.7 Plt Count 229 INR APTT 84.4 H Sodium 138 Potassium 4.3 Chloride 104 Carbon Dioxide 28 BUN 26 H Creatinine 0.83 Glucose 115 H Calcium 9.6 12/04/17 08:14 WBC Hgb Hct Plt Count INR APTT 77.2 H Sodium Potassium Chloride Carbon Dioxide BUN Creatinine Glucose Calcium Short CBC 12/04/17 Range/Units 01:17 WBC 9.3 (4.3-11.1) K/mcL Hgb 14.5 (11.5-15.4) g/dL Hct 41.7 (35.3-44.9) % Plt Count 229 (140-400) K/mcL Neutrophils # 6.0 (1.6-8.9) K/mcL BMP 12/04/17 Range/Units 01:17 Sodium 138 (136-145) mEq/L Potassium 4.3 (3.5-5.1) mEq/L Chloride 104 (98-107) mEq/L Carbon Dioxide 28 (23-29) mEq/L BUN 26 H (6-20) mg/dL Creatinine 0.83 (0.60-1.20) mg/dL Glucose 115 H (70-105) mg/dL Calcium 9.6 (8.6-10.3) mg/dL Impressions Echocardiogram 12/03/17 10:36 Impressions: LVEF 55%. Indeterminate diastolic function. RV size is not well visualized. Function appears normal. S/p mechanical aortic valve. Mild aortic regurgitation, possibly paravalvular. No Aortic stenosis. S/p mechanical mitral valve. Normal function by Doppler. Mild tricuspid regurgitation. No pulmonary hypertension. Left Ventricular Wall Motion: Rest Echo Findings All wall segments showed normal motion. Findings: Study Quality * Technically adequate exam. ECG Findings * Normal sinus rhythm. Left Ventricle * LVEF 55%. * Normal LV chamber size, wall thickness and function. * Indeterminate diastolic function. Right Ventricle * RV size is not well visualized. Function appears normal. Normal Lat S Tang. Left Atrium * Left atrium is not well visualized. Right Atrium * Normal right atrial size. Aortic Valve * Prosthetic aortic valve not well visualized. * No aortic stenosis. * Mild aortic regurgitation. Mitral Valve * Prosthetic mitral valve not well visualized. * No mitral stenosis. * No mitral regurgitation. Tricuspid Valve * Tricuspid valve not well visualized. * Mild tricuspid regurgitation. * Estimated RA pressure is 3 mmHg. * Estimated RVSP is 21 mmHg. * No pulmonary hypertension. Pulmonic Valve * Pulmonic valve is not well visualized. * No pulmonic stenosis. * No pulmonic regurgitation. Pulmonary Artery * Pulmonary artery not well visualized. Aorta * Normally sized aortic root. Pericardium * There is no pericardial effusion present. Interatrial Septum * No evidence of PFO by color Doppler. IVC * Normal IVC dimensions and inspiratory collapse. Active Medications Acetaminophen (Tylenol) 650 mg PO Q6HR PRN PRN Reason: Mild Pain/Fever Stop: 06/01/18 00:47 Last Admin: 12/01/17 16:35 Dose: 650 mg Atorvastatin Calcium (Lipitor) 10 mg PO HS COUNT INCLUDES THE [facility] Stop: 06/01/18 21:01 Last Admin: 12/03/17 19:56 Dose: 10 mg Carvedilol (Coreg) 3.125 mg PO BID [facility] Stop: 06/01/18 09:01 Last Admin: 12/03/17 19:56 Dose: 3.125 mg Clonazepam (Klonopin) 1 mg PO BID PRN PRN Reason: Anxiety Stop: 06/01/18 00:54 Last Admin: 12/02/17 12:51 Dose: 1 mg Fentanyl (Duragesic) 25 mcg TD Q72H COUNT INCLUDES THE [facility] Stop: 06/03/18 12:31 Last Admin: 12/02/17 12:41 Dose: 25 mcg Fluoxetine HCl (Prozac) 20 mg PO DAILY [facility] PRN Reason: Protocol Stop: 06/01/18 09:01 Last Admin: 12/03/17 07:43 Dose: 20 mg Heparin Sodium (Porcine) (Heparin) 4,900 unit 70 unit/kg (4900 unit) IVP Q6HR PRN PRN Reason: SEE COMMENTS Stop: 06/04/18 10:11 Heparin Sodium (Porcine) (Heparin) 2,500 unit 35 unit/kg (2500 unit) IVP Q6H PRN PRN Reason: SEE COMMENTS Stop: 06/04/18 10:11 Lamotrigine (Lamictal) 200 mg PO HS COUNT INCLUDES THE [facility] Stop: 06/01/18 01:01 Last Admin: 12/03/17 19:56 Dose: 200 mg Levothyroxine Sodium (Synthroid) 88 mcg PO 0630 [facility] Stop: 06/01/18 06:31 Last Admin: 12/04/17 05:53 Dose: 88 mcg Naloxone HCl (Narcan) 0.4 mg IVP Q2MIN PRN PRN Reason: SEE COMMENTS Stop: 06/01/18 00:47 Ondansetron HCl (Zofran) 4 mg IVP Q6HR PRN; Protocol PRN Reason: Nausea Stop: 06/01/18 09:34 Last Admin: 11/30/17 09:43 Dose: 4 mg Oxycodone/Acetaminophen (Percocet 5/325) 1 each PO Q6HR PRN PRN Reason: Severe Pain Stop: 06/03/18 13:31 Last Admin: 12/03/17 19:57 Dose: 1 each Promethazine HCl (Phenergan) 12.5 mg IVP Q6HR PRN PRN Reason: Nausea And Vomiting Stop: 06/01/18 14:41 Last Admin: 11/30/17 16:18 Dose: 12.5 mg Quetiapine Fumarate (Seroquel) 150 mg PO HS COUNT INCLUDES THE [facility] Stop: 06/01/18 01:01 Last Admin: 12/03/17 19:56 Dose: 150 mg Warfarin Sodium (Coumadin Perpt) 1 each PO DAILY@1800 PRN PRN Reason: SEE COMMENTS Stop: 06/02/18 18:01 - Imaging and Cardiology Echo: report reviewed - EKG Interpretation EKG results cardiology: personally reviewed (SR) - VTE Documentation of Mechanical Device: Intermittent pneumatic compression device Consult Discharge Plan - Plan Referrals: Josi Booth, IRONMOLDER [Primary Care Provider] -
[2017-12-04] MEDS ORDERED: *HR* FentaNYL (PF) 100 MCG/2 ML VIAL ONE (11:55)
[2017-12-04] MEDS ORDERED: *HR* Propofol 200 MG/20 ML VIAL IVP ONE (11:55)
[2017-12-04] MEDS ORDERED: *HR* Succinylcholine 200 MG/10 ML VIAL IVP ONE (11:56)
[2017-12-04] MEDS ORDERED: Ondansetron 4 MG/2 ML VIAL ONE (11:56)
[2017-12-04] MEDS ORDERED: *HR* Midazolam HCl 2 MG/2 ML VIAL ONE (11:56)
[2017-12-04] MEDS ORDERED: Lidocaine -MPF 2% 2 ML VIAL ONE (11:56)
[2017-12-04] MEDS ORDERED: Dexamethasone 4 MG/ML VIAL ONE (11:56)
[2017-12-04] MEDS ORDERED: *HR* Rocuronium Bromide 50 MG/5 ML VIAL ONE (11:56)
[2017-12-04] MEDS ORDERED: Lidocaine -MPF 4% 5 ML AMPUL ONE (11:59)
[2017-12-04] MEDS: Heparin 25,000 UNIT/500 ML D5W 25,000 UNIT/500 ML BAG IVC SCH (12:42)
[2017-12-04] MEDS: FLUoxetine 20 MG CAPSULE PO SCH (12:43)
[2017-12-04 15:38] LABS: INR 1.4; Prothrombin Time 14.9 Seconds (9.4-12.1)
[2017-12-04 15:40] LABS: Activated Partial Thrombo Time 67.9 Seconds (26.0-36.0)
--- NOTE | 2017-12-04 16:11 | Electrocardiograph Report ---
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
--- NOTE | 2017-12-04 16:23 | Internal Med Progress Note ---
Date of Encounter: 12/04/17 Time of Encounter: 16:21 - Assessment and plan (1) Compression fracture Current Visit: Yes Status: Acute Assessment and plan: per hc. Presented with worsening back pain. MRI of the lumbar spine reveals acute compression fractures at T12 and L1. There is no significant retropulsion of fragments in the canal. There are multilevel degenerative changes.Evaluated by Dr. Mascorro who recommended surgical intervention as she appears to be failing bracing and analgesics. Cont pain control post-op. Discussed case with anesthesiologist who is managing with Dr. Mascorro and plan is to resume heparin drip immediately postop. (2) S/P AVR (aortic valve replacement) Current Visit: Yes Status: Chronic Assessment and plan: hx rheumatic heart disease s/p mechanical aortic and mitral valve replacements in 2012 with DORENE and MAZE procedures at that time. Needs bridged until INR is therapeutic 2.5-3.5. 12/03/17 TTE with EF EF 55%. S/p mechanical aortic valve. Mild AR, possibly paravalvular. No . S/p mechanical MV. Normal function by Doppler. Mild TR. Cont heparin gtt perioperative; Heparin gtt cannot be held given her mechanical aortic and mitral valves. Continue heparin gtt post-op until INR is therapeutic. Cannot be discharged home until INR is 2.5-3.5. Cardiology followed (3) FRANCISCO (acute kidney injury) Current Visit: Yes Status: Resolved Assessment and plan: Resolved. Continue to avoid nephrotoxins and monitor labs. (4) Elevated INR Current Visit: Yes Status: Resolved Assessment and plan: INR 8.5 on arrival. Reverse with vitamin K. Closely monitor INR once Coumadin is resumed (5) At high risk for falls Current Visit: Yes Status: Chronic Assessment and plan: Monitor for safety and falls. Pt reports several falls over the last 6 months. Up with assistance only. PT/OT consult (6) DVT prophylaxis Current Visit: Yes Status: Acute Assessment and plan: Heparin gtt - Time Spent With Patient Total time spent is greater than 50% in coordination of care (as documented) at patient's floor/unit and/or counseling patient: - Subjective Interval history: Seen and examined at bedside. Patient is new to me, information obtained from chart review and patient report. She is still complaining of lower back pain that is sometimes relieved with when necessary pain medicine. She is expressing frustration over the wait for surgery. Denies any active/abnormal bleeding. - Constitutional Vitals: Temp Pulse Resp BP Pulse Ox 98.8 F 61 16 101/78 97 12/04/17 13:15 12/04/17 13:15 12/04/17 13:15 12/04/17 13:15 12/04/17 13:15 General appearance: Present: cooperative, A&O X 3, pleasant, no acute distress, answers questions appropriately - Head Head exam: Present: atraumatic, normocephalic - Eye Eye exam: Present: PERRL, conjuntiva pink, sclera anicteric Pupils: Present: PERRL - Neck Neck exam general surgery: Present: supple, trachea midline. Absent: lymphadenopathy - Respiratory Respiratory exam: Present: CTAB. Absent: accessory muscle use, rales, rhonchi, wheezes - Cardiovascular Cardiovascular exam: Present: RRR, +S1, +S2. Absent: diastolic murmur, gallop, rubs, systolic murmur - GI/Abdominal GI/Abdominal exam: Present: normal bowel sounds, soft, no peritoneal signs. Absent: distended, tenderness - Extremities Exam Extremities exam: Present: warm, radial pulses palpable and symmetrical. Absent : calf tenderness, cyanotic, pedal edema - Neurological Exam Neurological exam: Present: CN II-XII intact, oriented X3, no focal deficits. Absent: pronater drift, facial droop, speech deficit - Skin Skin exam: Present: dry, intact Internal Medicine: Result - Labs CBC & Chem 7: 12/04/17 01:17 12/04/17 01:17 Labs: Short CBC 12/04/17 Range/Units 01:17 WBC 9.3 (4.3-11.1) K/mcL Hgb 14.5 (11.5-15.4) g/dL Hct 41.7 (35.3-44.9) % Plt Count 229 (140-400) K/mcL Neutrophils # 6.0 (1.6-8.9) K/mcL BMP 12/04/17 01:17 Sodium 138 Potassium 4.3 Chloride 104 Carbon Dioxide 28 BUN 26 H Creatinine 0.83 Glucose 115 H Calcium 9.6 - ABG Interpretation ABG results: PT/INR, D-dimer PT 14.9 Seconds (9.4-12.1) H 12/04/17 15:25 - Impressions Impressions Echocardiogram 12/03/17 10:36 Impressions: LVEF 55%. Indeterminate diastolic function. RV size is not well visualized. Function appears normal. S/p mechanical aortic valve. Mild aortic regurgitation, possibly paravalvular. No Aortic stenosis. S/p mechanical mitral valve. Normal function by Doppler. Mild tricuspid regurgitation. No pulmonary hypertension. Left Ventricular Wall Motion: Rest Echo Findings All wall segments showed normal motion. Findings: Study Quality * Technically adequate exam. ECG Findings * Normal sinus rhythm. Left Ventricle * LVEF 55%. * Normal LV chamber size, wall thickness and function. * Indeterminate diastolic function. Right Ventricle * RV size is not well visualized. Function appears normal. Normal Lat S Tang. Left Atrium * Left atrium is not well visualized. Right Atrium * Normal right atrial size. Aortic Valve * Prosthetic aortic valve not well visualized. * No aortic stenosis. * Mild aortic regurgitation. Mitral Valve * Prosthetic mitral valve not well visualized. * No mitral stenosis. * No mitral regurgitation. Tricuspid Valve * Tricuspid valve not well visualized. * Mild tricuspid regurgitation. * Estimated RA pressure is 3 mmHg. * Estimated RVSP is 21 mmHg. * No pulmonary hypertension. Pulmonic Valve * Pulmonic valve is not well visualized. * No pulmonic stenosis. * No pulmonic regurgitation. Pulmonary Artery * Pulmonary artery not well visualized. Aorta * Normally sized aortic root. Pericardium * There is no pericardial effusion present. Interatrial Septum * No evidence of PFO by color Doppler. IVC * Normal IVC dimensions and inspiratory collapse. - VTE Documentation of Mechanical Device: Intermittent pneumatic compression device Consult Discharge Plan - Plan Referrals: Josi Booth, [employer] [Primary Care Provider] -
[2017-12-04] MEDS ORDERED: EPHEDrine 50 MG/ML VIAL ONE (16:28)
[2017-12-04] MEDS ORDERED: *HR* HYDROmorphone (PF) 1 MG/ML SYRINGE IVP PRN (17:39)
[2017-12-04] MEDS ORDERED: *HR* Labetalol 100 MG/20 ML MDV IVP PRN (17:39)
[2017-12-04] MEDS ORDERED: MORPHINE SUL Oral CONC 10 MG/0.5 ML ORAL.SYG SL PRN (17:39)
[2017-12-04] MEDS ORDERED: *HR* Promethazine 25 MG/ML VIAL IVP PRN (17:39)
[2017-12-04] MEDS ORDERED: Ondansetron 4 MG/2 ML VIAL IVP ONE (17:39)
--- NOTE | 2017-12-04 17:47 | Orthopedic Operative Note ---
Date of procedure: 12/04/17 Pre-op diagnosis: Osteopenia, vertebral compression fractures Post-op diagnosis: same Operation/Findings: Kyphoplasty T12 and L1: The patient was brought to the operative theater where successful endotracheal anesthesia was performed. The patient was given antibiotics prior to the start of the procedure. Compression boots and stockings were used for deep vein thrombosis. Patient was then turned prone on a well-padded Pedro table. The back was prepped and draped in the usual sterile fashion. 2 C-arm fluorographic devices were brought into position such that simultaneous AP and lateral views centered over the involved L1 vertebral body could be performed. A stab incision was made over the superior-lateral aspect of the left L1 pedicle. We introduced a Jamshidi needle into the L1 vertebral body via a transpedicular route. We took biplanar images of the vertebral body using fluorography. The needle was found to be in appropriate position and within the confines of the vertebral body. We then introduced a biopsy trocar and obtained a biopsy specimen of the L1 vertebral body. This was sent for pathologic evaluation. We then removed the biopsy trocar and introduced a Kyphon balloon. The balloon was insufflated to approximately 5 mL volume and subsequently deflated. The balloon was seen to expand within the confines of the L1 vertebral body on biplanar fluorographic views. The balloon was then removed. We then inserted cement trochars and sequentially placed bone cement within the confines of the L1 vertebral body. We took intermittent fluorographic views which confirmed satisfactory placement of the cement. After completion of the cementation process, the trocar was removed. We moved proximally to the T12 level and repeated steps that were performed at the L1 level. This included accessing the left T12 pedicle with a Jamshidi needle, confirming satisfactory placement of the trocar, and subsequently introduced a Kyphon balloon which was insufflated. The balloon was seen to expand within the confines of the T12 vertebral body and was deflated. We then inserted a trocar and sequentially placed cement inside the vertebral body of T12. After the cementation process was complete the trocar was removed. We took final AP and lateral fluorographic views. We then closed the stab incisions with 2-0 nylon suture. A Band-Aid was placed over each wound. The patient was turned supine on a hospital bed and extubated. All sponge instrument and needle counts were correct at the end of the procedure. The patient tolerated the procedure well without complications. Anesthesia: GETA Was there an technical support assistant present: No Estimated blood loss (cc): 6 Specimen: L1 vertebral biopsy Condition: stable Disposition: PACU
[2017-12-04] MEDS ORDERED: *HR* Warfarin 7.5 MG TABLET PO ONE (18:00)
--- NOTE | 2017-12-04 18:33 | Anesthesia Evaluation Post Op ---
Date of Encounter: 12/04/17 Time of Encounter: 18:32 - Vital Signs Vital Signs: vss - Lungs Lungs: Clear Ascult./Percussion - Airway Airway: Non-obstructed - Cardiovascular Baseline Rhythm - Mental Status Mental Status: Asleep with brisk response to light stimulation - Pain Pain Scale used: Trevon (Faces) (tolerable, no acute distress) - Nausea Vomiting Nausea Vomiting: Not Present - Hydration Hydration: Ice chips - Discharge PostOp Status: Transfer Patient to floor
[2017-12-04] MEDS ORDERED: Ondansetron 4 MG/2 ML VIAL IVP PRN (18:40)
[2017-12-04] MEDS ORDERED: *HR* Morphine 2 MG/ML SYRINGE IVP PRN (18:40)
[2017-12-04 19:28] LABS: INR 1.4; Prothrombin Time 14.8 Seconds (9.4-12.1)
[2017-12-04] MEDS: Ringers Solution, Lactated 1,000 ML IVC SCH (19:48)
[2017-12-04] MEDS: lamoTRIgine 100 MG TABLET PO SCH (23:41)
[2017-12-04] MEDS: clonazePAM 1 MG TABLET PO PRN (23:42)
[2017-12-04] MEDS: CeFAZolin Pre 2,000 MG/100 ML 2,000 MG/100 ML BAG IVPB SCH (23:42)
[2017-12-05] MEDS: Ringers Solution, Lactated 1,000 ML IVC SCH ×2 (07:30→17:30)
[2017-12-05] MEDS: FLUoxetine 20 MG CAPSULE PO SCH (07:45)
[2017-12-05] MEDS: CeFAZolin Pre 2,000 MG/100 ML 2,000 MG/100 ML BAG IVPB SCH (07:45)
[2017-12-05 08:36] LABS: INR 1.5
[2017-12-05 10:32] LABS: Hematocrit 36.9 % (35.3-44.9); Mean Corpuscular HGB Conc 34.4 g/dL (31.6-35.5); Mean Corpuscular Hemoglobin 34.7 pg (28.0-33.3); Mean Corpuscular Volume 100.8 fL (83.0-100.0); Mean Platelet Volume 10.4 fL (9.4-12.4); Platelet Count 221 K/mcL (140-400); Red Blood Count 3.66 M/mcL (3.82-4.97); Red Cell Distribution Width 13.1 % (11.5-14.5)
[2017-12-05 10:33] LABS: Hemoglobin 12.7 g/dL (11.5-15.4)
[2017-12-05] MEDS: *HR* OxyCODONE Immed Rel 5 MG TABLET PO PRN (15:07)
--- NOTE | 2017-12-05 15:59 | Internal Med Progress Note ---
Date of Encounter: 12/05/17 Time of Encounter: 15:57 - Assessment and plan (1) Compression fracture Current Visit: Yes Status: Acute Assessment and plan: per hc. Presented with worsening back pain. MRI of the lumbar spine reveals acute compression fractures at T12 and L1. There is no significant retropulsion of fragments in the canal. There are multilevel degenerative changes.Evaluated by Dr. Mascorro who recommended surgical intervention as she appears to be failing bracing and analgesics. S/p T12 and L1 kyphoplasty on [address] Mascorro. Logically intact. Continue postop pain control. (2) S/P AVR (aortic valve replacement) Current Visit: Yes Status: Chronic Assessment and plan: hx rheumatic heart disease s/p mechanical aortic and mitral valve replacements in 2012 with DORENE and MAZE procedures at that time. Needs bridged until INR is therapeutic 2.5-3.5. 12/03/17 TTE with EF EF 55%. S/p mechanical aortic valve. Mild AR, possibly paravalvular. No . S/p mechanical MV. Normal function by Doppler. Mild TR. Cont heparin gtt postoperative; Heparin gtt cannot be held given her mechanical aortic and mitral valves. Continue heparin gtt post-op until INR is therapeutic. Cannot be discharged home until INR is 2.5-3.5. Coumadin resume; pharmacy dosing. Cardiology followed (3) FRANCISCO (acute kidney injury) Current Visit: Yes Status: Resolved Assessment and plan: Resolved.. Continue to avoid nephrotoxins and monitor labs. (4) Elevated INR Current Visit: Yes Status: Resolved Assessment and plan: INR 8.5 on arrival. Reverse with vitamin K. Monitor INR now that Coumadin is resumed; pharmacy dosing. (5) At high risk for falls Current Visit: Yes Status: Chronic Assessment and plan: Monitor for safety and falls. Pt reports several falls over the last 6 months; likely secondary to acute back pain. Up with assistance only. Cont PT/OT (6) DVT prophylaxis Current Visit: Yes Status: Acute Assessment and plan: Heparin gtt, coumadin - Time Spent With Patient Total time spent is greater than 50% in coordination of care (as documented) at patient's floor/unit and/or counseling patient: - Subjective Interval history: Seen and examined at bedside; she complains of generalized back pain but overall improved from yesterday. No numbness or tingling. No bowel or bladder incontinence. She is aware of need to stay inpatient INR is between 2.5 and 3.5 ; she expresses desire to go home and is not happy about stating that she is agreeable to stay as advised per cardiology. No chest pain or shortness of breath. - Constitutional Vitals: Temp Pulse Resp BP Pulse Ox 97.4 F L 69 15 107/72 98 12/05/17 15:26 12/05/17 15:26 12/05/17 15:26 12/05/17 15:12/05/17 15:26 General appearance: Present: cooperative, A&O X 3, pleasant, no acute distress, answers questions appropriately - Head Head exam: Present: atraumatic, normocephalic - Eye Eye exam: Present: PERRL, conjuntiva pink, sclera anicteric Pupils: Present: PERRL - Neck Neck exam general surgery: Present: supple, trachea midline. Absent: lymphadenopathy - Respiratory Respiratory exam: Present: CTAB. Absent: accessory muscle use, rales, rhonchi, wheezes - Cardiovascular Cardiovascular exam: Present: RRR, +S1, +S2. Absent: diastolic murmur, gallop, rubs, systolic murmur - GI/Abdominal GI/Abdominal exam: Present: normal bowel sounds, soft, no peritoneal signs. Absent: distended, tenderness - Extremities Exam Extremities exam: Present: warm, radial pulses palpable and symmetrical. Absent : calf tenderness, cyanotic, pedal edema - Neurological Exam Neurological exam: Present: CN II-XII intact, oriented X3, no focal deficits. Absent: pronater drift, facial droop, speech deficit - Skin Skin exam: Present: dry, intact Internal Medicine: Result - Labs CBC & Chem 7: 12/05/17 08:17 12/04/17 01:17 Labs: Short CBC 12/05/17 Range/Units 08:17 WBC 11.0 (4.3-11.1) K/mcL Hgb 12.7 D (11.5-15.4) g/dL Hct 36.9 (35.3-44.9) % Plt Count 221 (140-400) K/mcL - ABG Interpretation ABG results: PT/INR, D-dimer PT 16.0 Seconds (9.4-12.1) H 12/05/17 08:17 - Impressions Impressions Fluoroscopy 12/04/17 16:37 IMPRESSION: Intraprocedural fluoroscopic spot images as above. See separate procedure report for more information. D/ / Duncan Kemp MD / Duncan Kemp MD Interpreting Provider: Duncan Kemp MD Lumbar Spine X-Ray 12/04/17 16:37 IMPRESSION: Intraprocedural fluoroscopic spot images as above. See separate procedure report for more information. D/ / Duncan Kemp MD / Duncan Kemp MD Interpreting Provider: Duncan Kemp MD Xray Preliminary Report 12/04/17 16:37 IMPRESSION: Intraprocedural fluoroscopic spot images as above. See separate procedure report for more information. D/ / Duncan Kemp MD / Duncan Kemp MD Interpreting Provider: Duncan Kemp MD - VTE Documentation of Mechanical Device: Intermittent pneumatic compression device Consult Discharge Plan - Plan Referrals: Josi Booth, [employer] [Primary Care Provider] -
[2017-12-05] MEDS: clonazePAM 1 MG TABLET PO PRN (16:39)
[2017-12-05] MEDS ORDERED: Warfarin perPT PO PRN (18:00)
[2017-12-05] MEDS ORDERED: *HR* Warfarin 5 MG TABLET PO ONE (18:00)
[2017-12-05] MEDS: lamoTRIgine 100 MG TABLET PO SCH (19:39)
[2017-12-06 01:40] LABS: Hematocrit 33.2 % (35.3-44.9); Mean Corpuscular HGB Conc 33.1 g/dL (31.6-35.5); Mean Corpuscular Hemoglobin 33.8 pg (28.0-33.3); Mean Corpuscular Volume 102.2 fL (83.0-100.0); Mean Platelet Volume 9.9 fL (9.4-12.4); Platelet Count 165 K/mcL (140-400); Red Blood Count 3.25 M/mcL (3.82-4.97); Red Cell Distribution Width 13.3 % (11.5-14.5)
[2017-12-06 01:50] LABS: Activated Partial Thrombo Time 61.2 Seconds (26.0-36.0)
[2017-12-06] MEDS: Ringers Solution, Lactated 1,000 ML IVC SCH (02:46)
[2017-12-06] MEDS: Heparin 25,000 UNIT/500 ML D5W 25,000 UNIT/500 ML BAG IVC SCH (02:46)
[2017-12-06] MEDS: FLUoxetine 20 MG CAPSULE PO SCH (07:59)
--- NOTE | 2017-12-06 09:13 | Orthopedics Progress Note ---
Date of Encounter: 12/05/17 Time of Encounter: 11:45 - Assessment and Plan (1) Status post kyphoplasty Current Visit: Yes Status: Acute (2) Vertebral compression fracture Current Visit: Yes Status: Acute Qualifiers: Encounter type: initial encounter Qualified Code(s): M48.50XA - Collapsed vertebra, not elsewhere classified, site unspecified, initial encounter for fracture (3) Osteopenia Current Visit: Yes Status: Chronic Qualifiers: Osteopenia location: unspecified Qualified Code(s): M85.80 - Other specified disorders of bone density and structure, unspecified site Subjective Principal diagnosis: vertebral compression fracture Interval history: POD#1 12/04/17 Ky[address]12 [address] L1 [address] Mascorro for Osteopenia, vertebral compression fractures The patient is without complaints. Afebrile vital signs are stable. Incision is clean dry and intact. Neurovascularly intact with regard to bilateral lower extremities. Fires all upper and lower extremity motor groups. Assessment :stable. Plan mobilize with therapy continue analgesics as needed discharge planning - per primary team. Appropriate to discharge from orthopedic postoperative perspective. please reconsult with any concerns or questions Objective Vital signs: Vital Signs Temp Pulse Resp BP Pulse Ox 12/06/17 07:00 97.6 F 59 16 154/86 96 12/06/17 02:59 97.5 F L 57 14 106/67 97 12/05/17 23:56 97.5 F L 60 16 103/66 98 12/05/17 18:26 97.9 F 62 16 100/62 96 12/05/17 15:26 97.4 F L 69 15 107/72 98 12/05/17 15:05 65 110/72 12/05/17 11:42 97.8 F 65 14 99/63 98 Intake and Output 12/05/17 12/06/17 12/06/17 23:59 07:59 15:59 Intake Total 1240 / 1240 1000 / 1000 Output Total 0 / 0 Balance 1240 / 1240 1000 / 1000 Intake: IV Fluids 1000 / 1000 1000 / 1000 Lactated Ringers 1,000 ML @ 100 1000 / 1000 1000 / 1000 mls/hr IVC .Q10H NARCISO Rx#: [id number] Oral 240 / 240 0 / 0 Output: Urine 0 / 0 Other: Meal Dinner Percent of Meal Consumed 50% # Voids 1 1 - Labs CBC & BMP: 12/06/17 01:18 12/04/17 01:17 Labs: Abnormal lab results RBC 3.25 M/mcL (3.82-4.97) L 12/06/17 01:18 Hgb 11.0 g/dL (11.5-15.4) L D 12/06/17 01:18 Hct 33.2 % (35.3-44.9) L 12/06/17 01:18 MCV 102.2 fL (83.0-100.0) H 12/06/17 01:18 MCH 33.8 pg (28.0-33.3) H 12/06/17 01:18 PT 16.0 Seconds (9.4-12.1) H 12/05/17 08:17 APTT 61.2 Seconds (26.0-36.0) H 12/06/17 01:18 Heparin Anti-Xa, Unfract 1.18 IU/mL (0.30-0.70) H* 12/03/17 17:38 BUN 26 mg/dL (6-20) H 12/04/17 01:17 BUN/Creatinine Ratio 31 (6-26) H 12/04/17 01:17 Glucose 115 mg/dL (70-105) H 12/04/17 01:17 Serum Total Protein 6.3 g/dL (6.4-8.9) L 11/30/17 05:37 - VTE Documentation of Mechanical Device: Intermittent pneumatic compression device Consult Discharge Plan - Plan Referrals: Josi Booth CNP [Primary Care Provider] - Iván Mascorro Jr, MD [Partnered Physician] - 12/20/17 3:15 pm
--- NOTE | 2017-12-06 09:47 | Internal Med Progress Note ---
Date of Encounter: 12/06/17 Time of Encounter: 09:42 - Assessment and plan (1) Compression fracture Current Visit: Yes Status: Acute Assessment and plan: per hc. Presented with worsening back pain. MRI of the lumbar spine reveals acute compression fractures at T12 and L1, multilevel degenerative changes, no significant retropulsion of fragments in the canal. Evaluated by Dr. Mascorro who recommended surgical intervention as she was failing bracing and analgesics. S/p T12 and L1 kyphoplasty on 12/04/[address] Mascorro. Neurologically intact. Continue postop pain control. Follow-up with Dr. Mascorro outpatient. (2) S/P AVR (aortic valve replacement) Current Visit: Yes Status: Chronic Assessment and plan: hx rheumatic heart disease s/p mechanical aortic and mitral valve replacements in 2012 with DORENE and MAZE procedures at that time. Coumadin held for kyphoplasty. 12/03/17 TTE with EF EF 55%. S/p mechanical aortic valve. Mild AR, possibly paravalvular. No . S/p mechanical MV. Normal function by Doppler. Mild TR. Need to continue heparin gtt post-op until INR is therapeutic; cannot be discharged home until INR is 2.5-3.5. Coumadin resumed; pharmacy dosing. Cardiology followed (3) FRANCISCO (acute kidney injury) Current Visit: Yes Status: Resolved Assessment and plan: Resolved.. Continue to avoid nephrotoxins and monitor labs. (4) Elevated INR Current Visit: Yes Status: Resolved Assessment and plan: INR 8.5 on arrival. Etiology unknown, patient reports no recent changes in Coumadin dose, maintains consistent diet, no recent ATB use. Reversed with vitamin K. Monitor INR now that Coumadin is resumed; pharmacy dosing. (5) At high risk for falls Current Visit: Yes Status: Chronic Assessment and plan: Monitor for safety and falls. Pt reports several falls over the last 6 months; likely secondary to compression fracture with acute back pain. Up with assistance only. Cont PT/OT (6) DVT prophylaxis Current Visit: Yes Status: Acute Assessment and plan: Heparin gtt, coumadin - Time Spent With Patient Total time spent is greater than 50% in coordination of care (as documented) at patient's floor/unit and/or counseling patient: - Subjective Interval history: Seen and examined at bedside; sad and tearful during exam because she cannot be discharged as her subtherapeutic INR. Has some back pain that she says is controlled. No chest pain, no shortness of breath. No numbness or tingling. - Constitutional Vitals: Temp Pulse Resp BP Pulse Ox 97.6 F 59 16 154/86 96 12/06/17 07:00 12/06/17 07:00 12/06/17 07:00 12/06/17 07:00 12/06/17 07:00 General appearance: Present: cooperative, A&O X 3, pleasant, no acute distress, answers questions appropriately - Head Head exam: Present: atraumatic, normocephalic - Eye Eye exam: Present: PERRL, conjuntiva pink, sclera anicteric Pupils: Present: PERRL - Neck Neck exam general surgery: Present: supple, trachea midline. Absent: lymphadenopathy - Respiratory Respiratory exam: Present: CTAB. Absent: accessory muscle use, rales, rhonchi, wheezes - Cardiovascular Cardiovascular exam: Present: RRR, +S1, +S2. Absent: diastolic murmur, gallop, rubs, systolic murmur - GI/Abdominal GI/Abdominal exam: Present: normal bowel sounds, soft, no peritoneal signs. Absent: distended, tenderness - Extremities Exam Extremities exam: Present: warm, radial pulses palpable and symmetrical. Absent : calf tenderness, cyanotic, pedal edema - Neurological Exam Neurological exam: Present: CN II-XII intact, oriented X3, no focal deficits. Absent: pronater drift, facial droop, speech deficit - Skin Skin exam: Present: dry, intact Internal Medicine: Result - Labs CBC & Chem 7: 12/06/17 01:18 12/04/17 01:17 Labs: Short CBC 12/05/17 12/06/17 Range/Units 08:17 01:18 WBC 11.0 6.8 (4.3-11.1) K/mcL Hgb 12.7 D 11.0 L D (11.5-15.4) g/dL Hct 36.9 33.2 L (35.3-44.9) % Plt Count 221 165 (140-400) K/mcL - ABG Interpretation ABG results: PT/INR, D-dimer PT 16.0 Seconds (9.4-12.1) H 12/05/17 08:17 - VTE Documentation of Mechanical Device: Intermittent pneumatic compression device Consult Discharge Plan - Plan Referrals: Iván Mascorro Jr, MD [Partnered Physician] - 12/20/17 3:15 pm Josi Booth CNP [Primary Care Provider] -
[2017-12-06 10:30] LABS: INR 1.5; Prothrombin Time 16.5 Seconds (9.4-12.1)
[2017-12-06] MEDS: *HR* OxyCODONE Immed Rel 5 MG TABLET PO PRN (13:32)
[2017-12-06] MEDS ORDERED: *HR* Warfarin 7.5 MG TABLET PO ONE (18:00)
[2017-12-06] MEDS: lamoTRIgine 100 MG TABLET PO SCH (19:55)
[2017-12-06] MEDS: clonazePAM 1 MG TABLET PO PRN (19:58)
[2017-12-07 03:10] LABS: Hematocrit 35.4 % (35.3-44.9); Hemoglobin 11.9 g/dL (11.5-15.4); Mean Corpuscular HGB Conc 33.6 g/dL (31.6-35.5); Mean Corpuscular Hemoglobin 34.2 pg (28.0-33.3); Mean Corpuscular Volume 101.7 fL (83.0-100.0); Mean Platelet Volume 9.8 fL (9.4-12.4); Platelet Count 169 K/mcL (140-400); Red Blood Count 3.48 M/mcL (3.82-4.97); Red Cell Distribution Width 13.3 % (11.5-14.5)
[2017-12-07 03:16] LABS: INR 1.7; Prothrombin Time 18.8 Seconds (9.4-12.1)
[2017-12-07] MEDS ORDERED: LAMOTRIGINE 100 MG PO SCH (09:00)
[2017-12-07] MEDS: FLUoxetine 20 MG CAPSULE PO SCH (09:18)
[2017-12-07] MEDS: lamoTRIgine 100 MG TABLET PO SCH ×2 (09:18→20:51)
--- NOTE | 2017-12-07 09:18 | Internal Med Progress Note ---
Date of Encounter: 12/07/17 Time of Encounter: 09:12 - Assessment and plan (1) Compression fracture Current Visit: Yes Status: Acute Assessment and plan: hx osteopenia with chronic vertebral compression fractures. Presented with worsening back pain. MRI of the lumbar spine reveals acute compression fractures at T12 and L1, multilevel degenerative changes, no significant retropulsion of fragments in the canal. Evaluated by Dr. Mascorro who recommended surgical intervention as she was failing bracing and analgesics. S/ p T12 and L1 kyphoplasty on 12/04/[address] Mascorro. Neurologically intact. Continue postop pain control. Follow-up with Dr. Mascorro outpatient. (2) S/P AVR (aortic valve replacement) Current Visit: Yes Status: Chronic Assessment and plan: hx rheumatic heart disease s/p mechanical aortic and mitral valve replacements in 2012 with DORENE and MAZE procedures at that time. Coumadin held for kyphoplasty. 12/03/17 TTE with EF EF 55%. S/p mechanical aortic valve. Mild AR, possibly paravalvular. No . S/p mechanical MV. Normal function by Doppler. Mild TR. Need to continue heparin gtt post-op until INR is therapeutic; cannot be discharged home until INR is 2.5-3.5. Coumadin resumed; pharmacy dosing. Cardiology followed. INR 1.7 on 12/07 (3) FRANCISCO (acute kidney injury) Current Visit: Yes Status: Resolved Assessment and plan: Resolved.. Continue to avoid nephrotoxins and monitor labs. (4) Elevated INR Current Visit: Yes Status: Resolved Assessment and plan: INR 8.5 on arrival. Etiology unknown, patient reports no recent changes in Coumadin dose, maintains consistent diet, no recent ATB use. Reversed with vitamin K. Monitor INR now that Coumadin is resumed; pharmacy dosing. (5) At high risk for falls Current Visit: Yes Status: Chronic Assessment and plan: Monitor for safety and falls. Pt reports several falls over the last 6 months; likely secondary to compression fracture with acute back pain. Up with assistance only. Cont PT/OT (6) DVT prophylaxis Current Visit: Yes Status: Acute Assessment and plan: Heparin gtt, coumadin - Time Spent With Patient Total time spent is greater than 50% in coordination of care (as documented) at patient's floor/unit and/or counseling patient: - Subjective Interval history: Seen and examined at bedside. Sitting up in chair at bedside. Remains upset about INR not been therapeutic. She is threatening to leave AGAINST MEDICAL ADVICE. Says she is not staying here over the weekend. I have explained to her multiple times and rationale/importance of staying in the hospital bridging with heparin drip until INR is at least 2.5. She remains upset/angry despite multiple expirations. - Constitutional Vitals: Temp Pulse Resp BP Pulse Ox 97.7 F 61 16 131/85 98 12/07/17 07:00 12/07/17 07:00 12/07/17 07:00 12/07/17 07:00 12/07/17 07:00 General appearance: Present: cooperative, A&O X 3, pleasant, no acute distress, answers questions appropriately - Head Head exam: Present: atraumatic, normocephalic - Eye Eye exam: Present: PERRL, conjuntiva pink, sclera anicteric Pupils: Present: PERRL - Neck Neck exam general surgery: Present: supple, trachea midline. Absent: lymphadenopathy - Respiratory Respiratory exam: Present: CTAB. Absent: accessory muscle use, rales, rhonchi, wheezes - Cardiovascular Cardiovascular exam: Present: RRR, +S1, +S2. Absent: diastolic murmur, gallop, rubs, systolic murmur - GI/Abdominal GI/Abdominal exam: Present: normal bowel sounds, soft, no peritoneal signs. Absent: distended, tenderness - Extremities Exam Extremities exam: Present: warm, radial pulses palpable and symmetrical. Absent : calf tenderness, cyanotic, pedal edema - Back Exam Back exam: Present: paraspinal tenderness, vertebral tenderness Additional comments: S/p Kyphoplasty sites covered with band aids. No s/sx infection - Neurological Exam Neurological exam: Present: CN II-XII intact, oriented X3, no focal deficits. Absent: pronater drift, facial droop, speech deficit - Skin Skin exam: Present: dry, intact Internal Medicine: Result - Labs CBC & Chem 7: 12/07/17 02:58 12/04/17 01:17 Labs: Short CBC 12/07/17 Range/Units 02:58 WBC 6.3 (4.3-11.1) K/mcL Hgb 11.9 (11.5-15.4) g/dL Hct 35.4 (35.3-44.9) % Plt Count 169 (140-400) K/mcL - ABG Interpretation ABG results: PT/INR, D-dimer PT 18.8 Seconds (9.4-12.1) H 12/07/17 02:58 - VTE Documentation of Mechanical Device: Intermittent pneumatic compression device Consult Discharge Plan - Plan Referrals: Iván Mascorro Jr, MD [Partnered Physician] - 12/20/17 3:15 pm Josi Booth CNP [Primary Care Provider] -
[2017-12-07] MEDS: *HR* OxyCODONE Immed Rel 5 MG TABLET PO PRN (09:22)
[2017-12-07] MEDS ORDERED: *HR* OxyCODONE Immed Rel 5 MG TABLET PO PRN (11:23)
[2017-12-07] MEDS: Heparin 25,000 UNIT/500 ML D5W 25,000 UNIT/500 ML BAG IVC SCH (17:04)
[2017-12-07] MEDS ORDERED: *HR* Warfarin 7.5 MG TABLET PO ONE (18:00)
[2017-12-08 04:02] LABS: Hematocrit 36.4 % (35.3-44.9); Hemoglobin 12.2 g/dL (11.5-15.4); Mean Corpuscular HGB Conc 33.5 g/dL (31.6-35.5); Mean Corpuscular Hemoglobin 33.9 pg (28.0-33.3); Mean Corpuscular Volume 101.1 fL (83.0-100.0); Mean Platelet Volume 10.1 fL (9.4-12.4); Platelet Count 175 K/mcL (140-400); Red Cell Distribution Width 13.2 % (11.5-14.5)
[2017-12-08 04:08] LABS: INR 2.1; Prothrombin Time 23.5 Seconds (9.4-12.1)
[2017-12-08 04:11] LABS: Activated Partial Thrombo Time 56.8 Seconds (26.0-36.0)
[2017-12-08] MEDS: *HR* Heparin 5,000 UNIT/ML VIAL IVP PRN ×2 (04:24→19:45)
--- NOTE | 2017-12-08 08:35 | Internal Med Progress Note ---
Date of Encounter: 12/08/17 Time of Encounter: 08:32 - Assessment and plan (1) Compression fracture Current Visit: Yes Status: Acute Assessment and plan: hx osteopenia with chronic vertebral compression fractures. Presented with worsening back pain. MRI of the lumbar spine reveals acute compression fractures at T12 and L1, multilevel degenerative changes, no significant retropulsion of fragments in the canal. Evaluated by Dr. Mascorro who recommended surgical intervention as she was failing bracing and analgesics. S/ p T12 and L1 kyphoplasty on 12/04/[address] Mascorro. Neurologically intact. Continue postop pain control. Follow-up with Dr. Mascorro outpatient. (2) S/P AVR (aortic valve replacement) Current Visit: Yes Status: Chronic Assessment and plan: hx rheumatic heart disease s/p mechanical aortic and mitral valve replacements in 2012 with DORENE and MAZE procedures at that time. Coumadin held for kyphoplasty. 12/03/17 TTE with EF EF 55%. S/p mechanical aortic valve. Mild AR, possibly paravalvular. No . S/p mechanical MV. Normal function by Doppler. Mild TR. Need to continue heparin gtt post-op until INR is therapeutic; cannot be discharged home until INR is 2.5-3.5. Coumadin resumed; pharmacy dosing. Cardiology followed. INR 2.1 on 12/08 (3) FRANCISCO (acute kidney injury) Current Visit: Yes Status: Resolved Assessment and plan: Resolved. Continue to avoid nephrotoxins and monitor labs. (4) Elevated INR Current Visit: Yes Status: Resolved Assessment and plan: INR 8.5 on arrival. Etiology unknown, patient reported no recent changes in Coumadin dose, maintains consistent diet, no recent ATB use. Reversed with vitamin K. Monitor INR now that Coumadin is resumed; pharmacy dosing. (5) At high risk for falls Current Visit: Yes Status: Chronic Assessment and plan: Monitor for safety and falls. Pt reports several falls over the last 6 months; likely secondary to compression fracture with acute back pain. Up with assistance only. Cont PT/OT (6) DVT prophylaxis Current Visit: Yes Status: Acute Assessment and plan: Heparin gtt, coumadin - Time Spent With Patient Total time spent is greater than 50% in coordination of care (as documented) at patient's floor/unit and/or counseling patient: - Subjective Interval history: Seen and examined at bedside. Laying in bed, appears comfortable. Complains of an achy back and wanting to go home otherwise she has no complaints. Denies numbness or tingling. No bowel or bladder incontinence. - Constitutional Vitals: Temp Pulse Resp BP Pulse Ox 98.8 F 65 16 156/75 99 12/08/17 07:21 12/08/17 07:21 12/08/17 07:21 12/08/17 07:21 12/08/17 07:21 General appearance: Present: cooperative, A&O X 3, pleasant, no acute distress, answers questions appropriately - Head Head exam: Present: atraumatic, normocephalic - Eye Eye exam: Present: PERRL, conjuntiva pink, sclera anicteric Pupils: Present: PERRL - Neck Neck exam general surgery: Present: supple, trachea midline. Absent: lymphadenopathy - Respiratory Respiratory exam: Absent: accessory muscle use, rales, rhonchi, wheezes Additional comments: respirations easy and unlabored - Cardiovascular Cardiovascular exam: Present: RRR, +S1, +S2. Absent: diastolic murmur, gallop, rubs, systolic murmur - GI/Abdominal GI/Abdominal exam: Present: no peritoneal signs. Absent: distended, tenderness Additional comments: denies ABD pain - Extremities Exam Extremities exam: Present: warm, radial pulses palpable and symmetrical. Absent : calf tenderness, cyanotic, pedal edema - Neurological Exam Neurological exam: Present: CN II-XII intact, oriented X3, no focal deficits. Absent: pronater drift, facial droop, speech deficit - Skin Skin exam: Present: dry, intact Internal Medicine: Result - Labs CBC & Chem 7: 12/08/17 03:26 12/04/17 01:17 Labs: Short CBC 12/08/17 Range/Units 03:26 WBC 7.1 (4.3-11.1) K/mcL Hgb 12.2 (11.5-15.4) g/dL Hct 36.4 (35.3-44.9) % Plt Count 175 (140-400) K/mcL - ABG Interpretation ABG results: PT/INR, D-dimer PT 23.5 Seconds (9.4-12.1) H 12/08/17 03:26 - VTE Documentation of Mechanical Device: Intermittent pneumatic compression device Consult Discharge Plan - Plan Referrals: Mascorro,Iván E Jr, MD [Partnered Physician] - 12/20/17 3:15 pm Josi Booth CNP [Primary Care Provider] -
[2017-12-08] MEDS: FLUoxetine 20 MG CAPSULE PO SCH (09:25)
[2017-12-08] MEDS: lamoTRIgine 100 MG TABLET PO SCH ×2 (09:27→19:56)
[2017-12-08 10:55] LABS: Activated Partial Thrombo Time 167.9 Seconds (26.0-36.0)
[2017-12-08 11:14] LABS: Heparin anti-factor XA UFH 0.61 IU/mL (0.30-0.70)
[2017-12-08] MEDS: *HR* OxyCODONE Immed Rel 5 MG TABLET PO PRN (15:32)
[2017-12-08] MEDS ORDERED: *HR* Warfarin 5 MG TABLET PO ONE (18:00)
[2017-12-08] MEDS: Heparin 25,000 UNIT/500 ML D5W 25,000 UNIT/500 ML BAG IVC SCH ×2 (18:06→19:22)
[2017-12-08] MEDS: Ringers Solution, Lactated 1,000 ML IVC SCH ×4 (19:22→22:56)
[2017-12-08] MEDS: clonazePAM 1 MG TABLET PO PRN (19:56)
[2017-12-09 02:01] LABS: Hematocrit 36.5 % (35.3-44.9); Hemoglobin 12.2 g/dL (11.5-15.4); Mean Corpuscular HGB Conc 33.4 g/dL (31.6-35.5); Mean Corpuscular Hemoglobin 34.1 pg (28.0-33.3); Mean Platelet Volume 10.6 fL (9.4-12.4); Platelet Count 183 K/mcL (140-400); Red Blood Count 3.58 M/mcL (3.82-4.97); Red Cell Distribution Width 13.3 % (11.5-14.5)
[2017-12-09 02:17] LABS: INR 2.7; Prothrombin Time 29.6 Seconds (9.4-12.1)
[2017-12-09 07:07] VITALS: BP 131/81
[2017-12-09] MEDS: FLUoxetine 20 MG CAPSULE PO SCH (09:01)
[2017-12-09] MEDS: lamoTRIgine 100 MG TABLET PO SCH (09:02)
--- NOTE | 2017-12-09 09:09 | Discharge Summary ---
Orders not resulted at time of discharge: Pending orders 12/04/17 17:16 Surgical Pathology [PTH] Routine 12/10/17 04:00 Complete Blood Count w/o Diff [HEME] AM 0400 INR/PT [Prothrombin Time INR] [COAG] AM 0400 12/11/17 04:00 INR/PT [Prothrombin Time INR] [COAG] AM 0400 Date of Encounter: 12/09/17 Time of Encounter: 09:04 - Discharge Diagnosis (1) Compression fracture Priority: Primary Status: Acute Assessment and Plan: hx osteopenia with chronic vertebral compression fractures. Presented with worsening back pain. MRI of the lumbar spine reveals acute compression fractures at T12 and L1, multilevel degenerative changes, no significant retropulsion of fragments in the canal. S/p T12 and L1 kyphoplasty on 12/04/[address] Mascorro. Remained neurologically intact. Follow-up with Dr. Mascorro outpatient. (2) S/P AVR (aortic valve replacement) Priority: Secondary Status: Chronic Assessment and Plan: hx rheumatic heart disease s/p mechanical aortic and mitral valve replacements in 2012 with DORENE and MAZE procedures at that time. Coumadin held for kyphoplasty. 12/03/17 TTE with EF EF 55%. S/p mechanical aortic valve. Mild AR, possibly paravalvular. No . S/p mechanical MV. Normal function by Doppler. Coumadin resumed postop and bridged with heparin gtt until INR was at least 2.5. Discussed with pharmacist prior to discharge and will discharge home on Coumadin 5 mg daily. Follow-up with anticoagulation clinic 12/10/17 for INR check. INR 2.7 at discharge. (3) Elevated INR Priority: Primary Status: Resolved Assessment and Plan: INR 8.5 on arrival. Etiology unknown, patient reported no recent changes in Coumadin dose, maintains consistent diet, no recent ATB use. Reversed with vitamin K for kyphoplasty. Hgb stable, no active bleeding. Coumadin dose adjusted prior to discharge. INR to be checked at anticoagulation clinic on 12/10. (4) FRANCISCO (acute kidney injury) Priority: Primary Status: Resolved Assessment and Plan: Cr 1.2; resolved with IV fluids. (5) At high risk for falls Priority: Secondary Status: Chronic Assessment and Plan: Monitor for safety and falls. Pt reports several falls over the last 6 months; likely secondary to compression fracture with acute back pain. Advised to wear back brace until seen by Dr. Mascorro at follow-up (6) Seizure Priority: Secondary Status: Chronic Assessment and Plan: per hx. Cont home lamictal (7) Hypothyroidism Priority: Secondary Status: Chronic Assessment and Plan: per hx. Cont home levothyroxine. Qualifiers: Hypothyroidism type: acquired Qualified Code(s): E03.9 - Hypothyroidism, unspecified Hospital course: See assessment and plan for Hospital course Discharge discussed with: patient (Seen and examined at bedside. Complains of a stiff/achy back at times otherwise she feels back to baseline. Denies numbness/tingling. No loss of bowel or bladder continence. INR is therapeutic today and she will be discharged home.) - Time Spent with Patient Total time spent providing and/or coordinating discharge services: - Discharge Medications Prescriptions: Docusate [Colace] 100 mg PO BID PRN #30 capsule PRN Reason: Constipation Polyethylene Glycol 3350 [MiraLAX] 17 gm PO DAILY #30 powd.pack Warfarin [Coumadin] 5 mg PO DAILY #30 tablet Home Medications: Carvedilol 3.125 mg PO BID 11/29/17 [History] FLUoxetine HCl [Prozac] 20 mg PO DAILY 11/29/17 [History] Levothyroxine [Synthroid] 88 mcg PO 0630 11/29/17 [History] Pravastatin Sodium [Pravachol] 40 mg PO HS 11/29/17 [History] Quetiapine Fumarate [Seroquel] 150 mg PO HS 11/29/17 [History] clonazePAM [Klonopin] 1 mg PO BID PRN 11/29/17 [History] lamoTRIgine [Lamictal Xr] 200 mg PO HS 11/29/17 [History] lamoTRIgine [Lamictal Xr] 100 mg PO QAM 12/06/17 [History] Docusate [Colace] 100 mg PO BID PRN #30 capsule 12/09/17 [Rx] Polyethylene Glycol 3350 [MiraLAX] 17 gm PO DAILY #30 powd.pack 12/09/17 [Rx] Warfarin [Coumadin] 5 mg PO DAILY #30 tablet 12/09/17 [Rx] Allergies/Adverse Reactions: 3 Allergy/AdvReac Type Severity Reaction Status Date / Time No Known Allergies Allergy Verified 11/29/17 17:20 Date of admission: 12/01/17 15:09 Primary care physician: Josi Booth CNP Consults: 12/03/17 10:12 Consult to Cardiology [CONS] Routine Comment: Consulting Provider: Cardiology Carin Reason for Consult: Pt to surgery later today for kyphoplasty. Consultation/ recommendation for risks due to mechanical valves. Time Notified: 10:13 Call Completed: Yes 12/04/17 18:40 Consult to Occupational Therapy [CONS] Routine Comment: Evaluate, develop and implement POC Reason for Consult: No bending, lifting or twisting, log roll when getting out of bed Does patient have active BEDREST order?: No Is patient medically & hemodynamically stable?: Yes Patient assessed for mobility or mobilized this visit?: No Discharging clinician: Marie Moncada Anticipated date of discharge: 12/09/17 - Constitutional Vitals: Temp Pulse Resp BP Pulse Ox 98.6 F 68 16 131/81 95 12/09/17 07:06 12/09/17 07:06 12/09/17 07:06 12/09/17 07:06 12/09/17 07:06 General appearance: Present: cooperative, A&O X 3, pleasant, no acute distress, answers questions appropriately - Patient Status Disposition: Home, Self-Care Condition: Good Functional capacity at discharge: uses cane/walker Overall status at discharge: patient is progressing back to baseline - Discharge Instructions Instructions: Kyphoplasty (DC) Follow Up With: Iván Mascorro Jr, MD [Partnered Physician] - 12/20/17 3:15 pm Josi Booth CNP [Primary Care Provider] - (Please call for follow-up appointment within 7-10 days) Additional Instructions: Please have your INR checked at anti-coagulation clinic on 12/10/17. - Diet and Activity Activity: increase activity as tolerated Diet: advance to your usual diet - VTE Documentation of Mechanical Device: Intermittent pneumatic compression device
[2017-12-09] MEDS ORDERED: *HR* Warfarin 5 MG TABLET PO ONE (18:00)
== END 2017-12-09 10:56 | disposition home or self-care (01) | DRG 478 ==
LOC: 3BNU 17:18 → EMEROO 17:18 → 3BNU 21:55 → 3NENU 12-04 17:51
PROVIDERS: ADMIT Registered Nurse; ATTEND Internal Medicine